=== PATIENT | male | born 1950 | race Caucasian/White ===

== ENCOUNTER → 2023-11-28 08:51 | Outpatient (REF) | payer OTHER, SELFPAY | LOC: RAD 08:51 | PROVIDERS: ATTENDING PHYSICIAN Family Medicine | DX: M54.9 Dorsalgia, unspecified (principal) | CPT/HCPCS: 72110 ==

== ENCOUNTER → 2024-03-09 13:26 | Outpatient (REF) | payer OTHER, SELFPAY | LOC: RCS 13:26 | PROVIDERS: ATTENDING PHYSICIAN Physician Assistant Medical; FAMILY PHYSICIAN Family Medicine | DX: I25.10 Atherosclerotic heart disease of native coronary artery without angina pectoris (principal) | CPT/HCPCS: 93306 ==

== ENCOUNTER 2024-07-06 11:11 | Outpatient (RCR) | payer OTHER, SELFPAY | END 2024-07-06 23:59 | disposition home or self-care (01) | LOC: RPT 11:11 | PROVIDERS: ATTENDING PHYSICIAN Family Medicine | DX: M54.50 Low back pain, unspecified (principal); M62.81 Muscle weakness (generalized); Z73.6 Limitation of activities due to disability | CPT/HCPCS: 97110; 97162; 97530 ==

== ENCOUNTER 2024-10-02 11:26 | Emergency (ER) | payer OTHER, SELFPAY ==
[2024-10-02 11:27] VITALS: BP 148/97
[2024-10-02 11:44] LABS: Urine Albumin 4+ (Neg - Trace); Urine Bilirubin Negative (Negative); Urine Character Bloody (Clear); Urine Color Red; Urine Glucose Negative (Negative); Urine Ketone 2+ (Negative); Urine Leukocyte Negative (Negative); Urine Nitrite Negative (Negative); Urine Occult Blood 4+ (Negative); Urine Specific Gravity 1.015 (<1.030); Urine Urobilinogen Negative (Neg - 1+); Urine pH 6.5 (5.0-9.0)
[2024-10-02 12:00] LABS: Urine Red Blood Cell >100 /HPF (0-2)
--- NOTE | 2024-10-02 12:04 | ED.GENMED ---
History of Present Illness
General
Chief Complaint: Flank Pain
Source: patient
Exam Limitations: none
Time Seen by Provider: 10/02/24 12:02
Nursing documentation reviewed up to this point in time: agreed with
History of Present Illness
History of Present Illness:
74 y/o M with h/o afib on xarelto
CAD, [place]
chronic L sided lubmar back pain
sent in by PCP for gross hematuria he noticed yesterday
he has no painful urination, no pressure, no urgency; denies seeing clots
has never had bleeding with urination bfore
he has had a remote kidney stone
a week ago he started a new med (lexapro) for anxiety but the following day had abdominal cramping but stopped it because of the cramping
then tried effexor a few days ago and had the same reaction with abdomianl crmaping
the abdominal cramping resolved
pt is not having persistent abd pain
he denies fever, chills, nausea, vomiting, diarrhea, constipation
the urine is translucent red
Past History
Past History
ED Past Medical History: Arrthythmia (Atrial fibrillation), CAD, GERD, HTN, Hypercholesterolemia, [place] and Other (Kidney stones, stomach ulcers, gout)
ED Past Surgical History: Cardiac
Social History
Tobacco: Non-smoker
Alcohol: None
Drug: None
Personal:
Living: with family
Review of Systems
Review of Systems
Allergies reviewed?: Yes
All Other Systems: Not applicable
Phy Exam
Physical Exam
Physical Exam:
GENERAL: Alert, comfortable, well appearing
Neck: supple
CARDIAC: Regular rate and rhythm .
LUNGS: Clear breath sounds bilaterally, no acute respiratory distress, no wheezes/rales/rhonchi
ABDOMEN: Soft, normal bowel sounds, nondistended, no abdominal tenderness, no guarding, no rebound, neg marshall's
gu: normal inspection
NEUROLOGICAL: Alert and oriented, no focal neuro deficits
SKIN: Warm and dry, skin intact.
PSYCH: Normal and appropriate interaction.
Course
Orders/Labs/Results
Orders:
Orders
10/02/24 11:36
Urinalysis Reflex To Culture Urgent
Date Specimen was Collected: 10/02/24
Time Specimen was Collected: 11:32
Urine Microscopic Reflex Cult Urgent
10/02/24 12:19
CT Abd/pel Without Iv Or Oral Urgent
Comment:
Reason For Exam: L back pain, hematuria
Bladder Scan- Treatment ONCE
10/02/24 12:54
Complete Blood Count/With Diff Urgent
Comprehensive Metabolic Panel Urgent
PTT Urgent
Prothrombin Time Urgent
10/02/24 15:38
Electrocardiogram (*1) Urgent
Reason for Study: Atrial Flutter
EKG- Treatment ONCE
Abnormal Lab Results
10/02/24 10/02/24
11:36 12:54
WBC 11.0 H 10^3/uL
(4.8-10.8)
MCH 31.4 H pg
(27.0-31.0)
RDW 15.0 H %
(11.5-14.5)
Abs Immat Gran (auto) 0.1 H 10^3/uL
(0-0.05)
Absolute Neuts (auto) 9.3 H 10^3/uL
(1.4-6.5)
Absolute Lymphs (auto) 0.9 L 10^3/uL
(1.2-3.4)
Absolute Monos (auto) 0.7 H 10^3/uL
(0.1-0.6)
Neutrophils % 84.3 H %
(42.2-75.2)
Lymphocytes % 7.8 L %
(20.5-51.1)
PT 21.9 H Sec
(11.4-14.6)
APTT 48.0 H Sec
(23.4-35.0)
Potassium 3.3 L mmol/L
(3.5-5.1)
Total Bilirubin 1.9 H mg/dl
(0.2-1.3)
Urine Ketones 2+ A
(Negative)
Ur Occult Blood Reflex 4+ A
(Negative)
Urine RBC >100 A /HPF
(0-2)
Urine Albumin (Reflex) 4+ A
(Neg - Trace)
10/02/24 12:54
10/02/24 12:54
Vital Signs
Initial and Last Documented VS:
Initial Vital Signs
Temp Pulse Resp BP Pulse Ox
36.6 C 102 22 148/97 99
10/02/24 11:27 10/02/24 11:27 10/02/24 11:27 10/02/24 11:27 10/02/24 11:27
Last Documented Vital Signs
Temp Pulse Resp BP Pulse Ox
36.6 C 102 22 168/91 97
10/02/24 11:27 10/02/24 11:27 10/02/24 11:27 10/02/24 16:00 10/02/24 16:45
MDM/Problems Addressed
Differential Diagnosis Includes:
hematuria, cysitis, kidney stone, bladder ca
MDM/Problems Addressed:
74 y/o M chroinc afib on xarelto
remote kidney stone
here with painless hematuria since yesterday; has chronic L back pain unchanged
urine is thin, no clots, and slightly dark red
no LE/nitrite
hg stable
PVR is [address] shows no obstructive uropathy; prostatomegaly; other nonspecific findigns; stones in the kidney
he would like to go home
his urine remains translucent red
he is not in retention
i spoke with supervisor electronics assembly urologist dr. parra who recommended holding the xarelto for 48 hours and f/u with dr. velezin 2 days
pt is agreeable to this plan
he is chronically in afib
aware benefit>risk for holding the xarelto for this time period
UA does not look infected.
*Critical Care Note
Total Time (30-74mins, 75-104mins- exclusive of procedures): Not Applicable
ED Attending Note
-
Portions of this chart may have been created with voice recognition software.� Occasional wrong word or��sound alike� substitutions may have occurred due to the inherent limitations of voice recognition software.
Discharge Plan
Departure
Patient Disposition: Home (Routine Discharge)
Date of Disposition: 10/02/24
Time of Disposition: 16:46
Patient with high blood pressure during this ER visit?: No
Condition: Fair
Covid-19: Not Applicable
Discharge Problem:
Hematuria
Instructions: Blood in the urine (hematuria) - ED discharge instructions
Prescriptions:
No Action
aspirin 81 MG tablet,delayed release (DR/EC)
81 mg PO DAILY
allopurinol 300 MG tablet
300 mg PO DAILY
amlodipine 5 MG tablet
5 mg PO DAILY
atorvastatin 80 MG tablet
80 mg PO DAILY
rivaroxaban [Xarelto] 20 MG tablet
20 mg PO DAILY
Referrals:
Ariel Velez MD [Active] - Follow up in 2-3 days
Ousmane Thacker MD [Family Provider] -
Activity Restrictions/Additional Instructions:
Hold your Xarelto for 48 hours. Hopefully this reduces the bleeding. Drink plenty of fluids to stay hydrated.
Call the office of Dr. Velez urologist on Friday to schedule an appointment. You will likely need further testing to see why you are bleeding. There were no signs of kidney stones passing in your ureter but you do have a couple of stones in
your kidney that could pass at some point.
Return for inability to urinate, passing clots, thick or very bloody urine, fever or chills, pain or any concerns
Interventions
Interventions:
*Risk Screen - Suicide Last Done: 10/02/24 11:27
*General Assessment Last Done: 10/02/24 11:27
*Neglect/Abuse Screening Last Done: 10/02/24 11:27
*ED- Fall Risk Assessment Last Done: 10/02/24 17:00
*ED COVID-19 Vaccine History Last Done: 10/02/24 12:44
*Nursing Disposition Last Done: 10/02/24 17:00
CD-Tzjnjp-Xnmllmtajz Assessment Last Done: 10/02/24 14:30
ED-Male Genitourinary Assessment Last Done: 10/02/24 14:30
Discharge Date and Time
Discharge Date/Time: 10/02/24 17:00
Print Language: ERITREAN
[2024-10-02 12:44] VITALS: BMI 26.2
[2024-10-02 13:00] VITALS: BP 147/84
[2024-10-02 13:05] LABS: % Basophils 0.3 % (0-2); % Eosinophils 0.4 % (0-6); % Immature Granulocytes 0.5 % (0-0.5); % Lymphocytes 7.8 % (20.5-51.1); % Monocytes 6.7 % (1.7-9.3); % Neutrophils 84.3 % (42.2-75.2); Absolute Immature Granulocytes 0.1 10^3/uL (0-0.05); Absolute Lymphocytes 0.9 10^3/uL (1.2-3.4); Absolute Monocytes 0.7 10^3/uL (0.1-0.6); Absolute Neutrophils 9.3 10^3/uL (1.4-6.5); Hematocrit 41.7 % (39.0-52.0); Hemoglobin 15.1 g/dL (13.0-18.0); Mean Corp Hgb Conc. 36.2 g/dL (33.0-37.0); Mean Corpuscular Hgb 31.4 pg (27.0-31.0); Mean Corpuscular Volume 86.7 fL (80.0-94.0); Mean Platelet Volume 9.9 fL (7.4-10.4); Nucleated Red Blood Cells % 0 % (-); Platelet Count 216 10^3/uL (130-400); Red Blood Cell Count 4.81 10^6/uL (4.70-6.10)
[2024-10-02 13:18] LABS: ALT (SGPT) 17 U/L (0-50); AST (SGOT) 33 U/L (17-59); Albumin 4.1 g/dl (3.5-5.0); Alkaline Phosphatase 96 U/L (38-126); Blood Urea Nitrogen 20 mg/dl (9-20); Calcium 9.6 mg/dl (8.4-10.2); Carbon Dioxide 22 mmol/L (22-30); Chloride 101 mmol/L (98-107); Estimated Creatinine Clearance 68 ml/min; Glucose 94 mg/dl (70-99); PT 21.9 Sec (11.4-14.6); Potassium 3.3 mmol/L (3.5-5.1); Sodium 136 mmol/L (135-145); Total Bilirubin 1.9 mg/dl (0.2-1.3); Total Protein 6.8 g/dl (6.3-8.2); eGFR > 60.00
[2024-10-02 14:00] VITALS: BP 133/89
[2024-10-02 15:34] VITALS: BP 161/92
[2024-10-02 16:00] VITALS: BP 168/91
== END 2024-10-02 17:00 | disposition home or self-care (01) ==
LOC: EMR 11:26
PROVIDERS: Physician Assistant; EMERGENCY PHYSICIAN Emergency Medicine; FAMILY PHYSICIAN Family Medicine
DX: R31.9 Hematuria, unspecified (principal); I48.91 Unspecified atrial fibrillation; I25.10 Atherosclerotic heart disease of native coronary artery without angina pectoris; I10 Essential (primary) hypertension; I25.2 Old myocardial infarction; K21.9 Gastro-esophageal reflux disease without esophagitis; E78.00 Pure hypercholesterolemia, unspecified; F41.9 Anxiety disorder, unspecified; Z79.01 Long term (current) use of anticoagulants; Z87.442 Personal history of urinary calculi
CPT/HCPCS: 99284; 74176; 80053; 81003; 81015; 85025; 85610; 85730; 93005

== ENCOUNTER → 2024-12-08 14:38 | Outpatient (REF) | payer OTHER, SELFPAY | LOC: RCS 14:38 | PROVIDERS: ATTENDING PHYSICIAN Internal Medicine Interventional Cardiology; FAMILY PHYSICIAN Family Medicine | DX: I25.10 Atherosclerotic heart disease of native coronary artery without angina pectoris (principal); Z79.01 Long term (current) use of anticoagulants; R60.0 Localized edema; I31.39 Other pericardial effusion (noninflammatory) | CPT/HCPCS: 93306 ==

== ENCOUNTER 2025-02-17 04:13 | Inpatient (IN) | payer OTHER, SELFPAY ==
--- NOTE | 2025-02-16 23:37 | ED.GENMED ---
History of Present Illness
General
Chief Complaint: Abdominal Pain
Source: patient
Exam Limitations: none
Time Seen by Provider: 02/16/25 23:16
Nursing documentation reviewed up to this point in time: agreed with
History of Present Illness
History of Present Illness:
Note:
CHIEF COMPLAINT(S)
Abdominal pain.
HISTORY OF PRESENT ILLNESS
The patient is a 74-year-old male with a history of kidney stones and hernia repair, A-fib on Xarelto, coronary artery disease, hypertension, GERD presenting with abdominal pain experienced for a few days. The onset of the abdominal pain coincided
with the initiation of a new medication, 'ex-garcia,' approximately two months ago. The patient describes the pain as worsening over time, starting suddenly last night and then becoming progressively severe. Additionally, he mentioned decreased
urination despite maintaining high fluid intake. Today, the patient consumed apple cider, which he does not regularly drink, and this intake preceded an exacerbation of the pain. The pain has been constant. He also reported vomiting once and feeling
feverish, with associated chills in the last hour. He describes the abdominal pain as located in the front of the abdomen, on both sides, with no radiation to the back or groin. The pain reminds him of discomfort experienced during previous kidney
stone episodes. The patient also admitted to nausea but stated it subsided temporarily. He denies any rectal bleeding, dark tarry stools.
PAST MEDICAL AND SURGICAL HISTORY
- History of kidney stones with surgical intervention.
- History of hernia repair surgery.
CHRONIC MEDICAL CONDITIONS SIGNIFICANTLY AFFECTING CARE
- Atrial fibrillation (patient is on Xarelto, a blood thinner).
MEDICATIONS
- Xarelto for atrial fibrillation.
REVIEW OF SYSTEMS
- Gastrointestinal: Abdominal pain worsening, vomiting once, nausea, decreased urination despite fluid intake.
- Constitutional: Fevers and chills in the last hour.
PHYSICAL EXAM
General: Patient appears uncomfortable secondary to pain however non-toxic
Skin: Warm, dry.
Head: Normocephalic, atraumatic.
Neck: Supple, trachea midline.
Eyes, Ears, Nose, and Throat: Oral mucosa moist.
Cardiovascular: Normal peripheral perfusion, No edema.
Respiratory: Respirations are non-labored.
Gastrointestinal: Abdominal pain noted with palpation and guarding, rigidity on examination, pain localized to lower abdomen.
Neurological: Alert and oriented to person, place, time, and situation, No focal neurological deficit observed.
Psychiatric: Cooperative, appropriate mood & affect.
PLAN
- Administer pain management with morphine.
- Avoid nonsteroidal anti-inflammatory drugs (NSAIDs) due to Xarelto use.
- Conduct a CT scan
- CBC, CMP, lactic, lipase, urine
DIFFERENTIAL DIAGNOSIS
The Differential Diagnosis includes, in no particular order and is not limited to:
1. Kidney stones
2. Bowel obstruction
3. Hernia complications
4. Gastroenteritis
5. Constipation
6. Peptic ulcer disease
7. Gastritis
8. Pancreatitis
9. Urinary tract infection
10. Diverticulitis
CHART REVIEW
Reviewed ER physician documentation from 10/02/2024 patient seen for hematuria he was told to withhold Xarelto for 48 hours and schedule follow-up with Dr. Velez in 2 days
Reviewed discharge summary from 06/25/2020 patient seen for hematochezia was attributed to likely diverticulosis versus nonspecific rectosigmoid ulcers patient was cleared to resume Xarelto
MDM/DISPOSITION
The patient is a 74-year-old male with a history of kidney stones and hernia repair, A-fib on Xarelto, coronary artery disease, hypertension, GERD presenting with abdominal pain experienced for a few days. The onset of the abdominal pain coincided
with the initiation of a new medication, 'ex-garcia,' approximately two months ago. The patient describes the pain as worsening over time, starting suddenly last night and then becoming progressively severe. On physical exam, he appears uncomfortable
secondary to pain, he has a rigid abdomen with guarding. He is afebrile. His blood work shows a leukocytosis with left shift. His pain was treated with morphine. He went for CAT scan which showed moderate wall thickening and inflammatory
changes/phlegmon involving the proximal descending colon consistent with diverticulitis, there is foci of gas slightly to the wall consistent with microperforation. Considering patient's degree of pain along with evidence of microperforation on CAT
scan, will admit for IV antibiotic and GI consult. Patient referred for admission.
Past History
Past History
ED Past Medical History: Arrthythmia (Atrial fibrillation), CAD, GERD, HTN, Hypercholesterolemia, [place] and Other (Kidney stones, stomach ulcers, gout)
ED Past Surgical History: Cardiac
Social History
Tobacco: Non-smoker
Alcohol: None
Drug: None
Personal:
Living: with family
Review of Systems
Review of Systems
All Other Systems: ROS reviewed and negative except as documented in HPI and ROS
Phy Exam
Physical Exam
Physical Exam:
see hpi
Course
Orders/Labs/Results
Orders:
Orders
02/16/25 23:31
Electrocardiogram (*1) Urgent
Reason for Study: Abdominal Pain
0.9% Sodium Chloride 250 ml [Nss] 250 ml IV BOLUS
Morphine Sulfate 4 mg IV NOW STA
02/16/25 23:34
Complete Blood Count/With Diff Urgent
Comprehensive Metabolic Panel Urgent
Lactic Acid Urgent
Lipase Urgent
02/17/25
CT Abd/pelvis W Iv Cont Urgent
Reason For Exam: diffuse lower abdominal pain
02/17/25 02:21
Morphine Sulfate 2 mg IV NOW STA
Piperacillin/Tazo 4.5 Gram [Zosyn] 4.5 gram in 100 ml IV NOW
02/17/25 02:35
Urinalysis Reflex To Culture Urgent
Date Specimen was Collected: 02/17/25
Time Specimen was Collected: 02:29
Urine Microscopic Reflex Cult Urgent
Abnormal Lab Results
02/16/25 02/17/25
23:34 02:35
WBC 16.3 H 10^3/uL
(4.8-10.8)
MCH 31.3 H pg
(27.0-31.0)
Abs Immat Gran (auto) 0.1 H 10^3/uL
(0-0.05)
Absolute Neuts (auto) 14.6 H 10^3/uL
(1.4-6.5)
Absolute Lymphs (auto) 0.8 L 10^3/uL
(1.2-3.4)
Absolute Monos (auto) 0.7 H 10^3/uL
(0.1-0.6)
Neutrophils % 89.9 H %
(42.2-75.2)
Lymphocytes % 4.6 L %
(20.5-51.1)
Sodium 132 L mmol/L
(135-145)
Glucose 127 H mg/dl
(70-99)
Lactic Acid 2.5 H mmol/L
(0.7-2.0)
Total Bilirubin 2.0 H mg/dl
(0.2-1.3)
Urine Urobilinogen 2+ A
(Neg - 1+)
Urine Albumin (Reflex) 2+ A
(Neg - Trace)
02/16/25 23:34
02/16/25 23:34
Vital Signs
Initial and Last Documented VS:
Initial Vital Signs
Temp Pulse Resp Pulse Ox
98.2 F 56 18 99
02/16/25 23:02 02/16/25 23:02 02/16/25 23:02 02/16/25 23:02
Last Documented Vital Signs
Temp Pulse Resp Pulse Ox
98.2 F 56 18 92
02/16/25 23:02 02/16/25 23:02 02/16/25 23:02 02/17/25 03:30
*Pulse Oximetry
SaO2: 99
Oxygen Mode of Delivery: Room air
Patient hypoxic: no
*Critical Care Note
Total Time (30-74mins, 75-104mins- exclusive of procedures): Not Applicable
ED Attending Note
-
Portions of this chart may have been created with voice recognition software.� Occasional wrong word or��sound alike� substitutions may have occurred due to the inherent limitations of voice recognition software.
Discharge Plan
Departure
Patient Disposition: Admit
Date of Disposition: 02/17/25
Time of Disposition: 02:23
Admit to: Med/Surg
Presentation/result/management discussed w/ accepting MD/DO: Hospitalist
Patient with high blood pressure during this ER visit?: Yes
Condition: Fair
Discharge Problem:
Diverticulitis of large intestine with perforation
Prescriptions:
No Action
aspirin 81 MG tablet,delayed release (DR/EC)
81 mg PO DAILY
allopurinol 300 MG tablet
300 mg PO DAILY
amlodipine 5 MG tablet
5 mg PO DAILY
atorvastatin 80 MG tablet
80 mg PO DAILY
rivaroxaban [Xarelto] 20 MG tablet
20 mg PO DAILY
Referrals:
Ousmane Thacker MD [Family Provider, Family Practice]
Interventions
Interventions:
*Risk Screen - Suicide Last Done: 02/16/25 23:02
*General Assessment Last Done: 02/16/25 23:02
*ED- Fall Risk Assessment Last Done: 02/17/25 00:16
*ED COVID-19 Vaccine History Last Done: 02/17/25 00:16
VY-Lozaem-Yitostrpjz Assessment Last Done: 02/17/25 00:16
Discharge Date and Time
Print Language: [place]LAND[place]
[2025-02-16] MEDS: NSS 250 IV (23:46)
[2025-02-16] MEDS: MORPHINE SULFATE 4 MG IV (23:47)
[2025-02-16 23:51] LABS: Hematocrit 42.0 % (39.0-52.0); Hemoglobin 14.7 g/dL (13.0-18.0); Mean Corp Hgb Conc. 35.0 g/dL (33.0-37.0); Mean Corpuscular Volume 89.4 fL (80.0-94.0); Nucleated Red Blood Cells % 0 % (-); Platelet Count 224 10^3/uL (130-400); Red Cell Dist. Width 13.9 % (11.5-14.5)
[2025-02-17] VITALS (8 sets, daily range): BP systolic 111–143; BP diastolic 65–85; BMI 25.3; BMI 25.6
[2025-02-17 00:08] LABS: ALT (SGPT) 17 U/L (0-50); AST (SGOT) 26 U/L (17-59); Albumin 3.7 g/dl (3.5-5.0); Alkaline Phosphatase 84 U/L (38-126); Blood Urea Nitrogen 10 mg/dl (9-20); Calcium 9.2 mg/dl (8.4-10.2); Carbon Dioxide 26 mmol/L (22-30); Chloride 99 mmol/L (98-107); Glucose 127 mg/dl (70-99); Lipase 97 U/L (23-300); Potassium 3.9 mmol/L (3.5-5.1); Sodium 132 mmol/L (135-145); Total Protein 6.3 g/dl (6.3-8.2); eGFR > 60.00
[2025-02-17] MEDS: ZOSYN 100 IV (02:30)
[2025-02-17] MEDS: MORPHINE SULFATE 2 MG IV (02:31)
[2025-02-17 02:56] LABS: Urine Character Clear (Clear)
[2025-02-17 03:04] LABS: Urine Red Blood Cell None Seen /HPF (0-2); Urine White Cell 0-2 /HPF (0-5)
--- NOTE | 2025-02-17 04:02 | HPS.HSE ---
Family Physician
-
Family Physician: Ousmane Thacker
Chief Complaint
-
Abd Pain
History of Present Illness
Patient is a 74y M with PMH significant for ASCVD, hypertension and dementia who presents to ED complaining of abdominal pain x 3 days. History obtained from patient and his family at bedside. Patient is somewhat confused at time regarding
recent events - suspected combination of underlying cognitive impairment / dementia and pain medicine given in the ED.
Patient reports recent issues with constipation - presumably since beginning escitalopram for mood / anxiety. For the past 3 days or so he has noted lower abdominal pain. N/V x 1 episode today. No fevers. Pos shaking chills per .
No bloody stools. No urinary complaints.
Patient has no prior history of diverticulitis.
Medical History
Past Medical History
Past Medical History: Reports Other
Additional Past Medical History:
ASCVD
Hypertension
Permanent Atrial Fibrillation
Gout
DAVE
BPH
Kidney Stones
Senile Dementia
Past Surgical History: Reports Other
Additional Past Surgical History:
PTCA with Stent
Rotator Cuff Surgery
Umbilical Hernia Repair
PPM Placement
Social History
Tobacco: Non-smoker
Alcohol: Occasional
Drug: None
Personal:
Living: With Family
Family History
Family History: Not pertinent
Allergies / Home Medications
Allergies reflects when Allergies were last updated in [employer].
Home Medications with original date entered in [employer] [facility]
Allergy/Medication List:
Allergies
Allergy/AdvReac Type Severity Reaction Status Date / Time
No Known Allergies Allergy Verified 10/02/24 11:27
Home Medications
allopurinol 300 mg tablet 300 mg PO DAILY Gout 10/29/13
amlodipine 5 mg tablet 5 mg PO DAILY Blood pressure 10/15/18
atorvastatin 80 mg tablet 80 mg PO DAILY High cholesterol 02/12/19
rivaroxaban 20 mg tablet (Xarelto) 20 mg PO DAILY Blood clot prevention/tx 06/24/20
escitalopram oxalate 10 mg tablet 10 mg PO DAILY 02/17/25
tamsulosin 0.4 mg capsule 0.4 mg PO DAILY 02/17/25
Review of Systems
-
History Source: Patient and Family
A 12 point ROS was completed and negative except as noted: Yes
Constitutional: Reports Chills; Denies Fever or Fatigue
Respiratory: Denies Cough or Trouble Breathing
Cardiac: Denies Chest Pain or Palpitations
Abdomen/GI: Reports Abdominal Pain, Nausea, Vomiting and Constipated; Denies Diarrhea, Bloody Stools or Black Stools
: Denies Dysuria or Frequency
Musculoskeletal: Denies Joint Pain or Edema
Neurological: Denies Dizzy or Headache
Psych: Reports Anxiety and Dementia; Denies Depression
Physical Exam
Vital Signs
Vital Signs
Temp Pulse Resp Pulse Ox
98.2 F 56 18 92
02/16/25 23:02 02/16/25 23:02 02/16/25 23:02 02/17/25 03:30
Physical Exam
General: Other (74y M in no acute distress.)
HEENT: Other (Dry MM. Neck supple.)
Respiratory: Clear; No Wheezes, Rales or Rhonchi
Cardiac: S1/S2, Regular Rhythm and Murmur (II/ EVE)
GI: Soft, Non Distended, Normal Bowel Sounds and Other (LLQ tenderness without rebound /guarding.)
Musculoskeletal: No Clubbing, No Cyanosis and No Edema
Neuro: Awake and Alert
Laboratory Results
-
02/16/25 23:34
02/16/25 23:34
Laboratory Results
Lactic Acid 2.5 mmol/L (0.7-2.0) H 02/16/25 23:34
Total Bilirubin 2.0 mg/dl (0.2-1.3) H 02/16/25 23:34
AST 26 U/L (17-59) 02/16/25 23:34
ALT 17 U/L (0-50) 02/16/25 23:34
Alkaline Phosphatase 84 U/L (38-126) 02/16/25 23:34
Lipase 97 U/L (23-300) 02/16/25 23:34
Impression/Plan
-
A/P: Patient is a 74y M with PMH significant for ASCVD, hypertension and A-Fib who presents to ED complaining of lower abdominal pain x 3 days.
Acute Descending Colon Diverticulitis with Microperforation
- Admit for further evaluation and treatment.
- Clear liquids, IVFs, pain control, etc.
- IV abx with Zosyn.
- Follow for clinical improvement.
- Colorectal evaluation for additional recommendations.
ASCVD
- Stable. No chest pain, dyspnea, etc.
- ASA daily for now. Follow for any new symptoms.
Permanent Atrial Fibrillation
- Stable. Currently in placed rhythm.
- Hold Xarelto acutely - though doubt that any intervention will be necessary.
Benign Hypertension
- Stable. Continue amlodipine with holding parameters.
BPH
- Stable. Continue Flomax.
- Bladder scan protocol.
Cognitive Impairment
- Being evaluated for suspected dementia. Outpatient studies, MRI, Neuro eval are planned / in progress.
- Follow for agitation, delirium, etc during acute stay.
- Hold Lexapro for now. Consider alternate agent for mood.
DVT Prophylaxis: SCDs
Code Status: Full
--- NOTE | 2025-02-17 05:10 | PTCARENOTE ---
Pt arrived to room 415-02. Pt ambulated from stretcher to bed with assistance. Pt AAOx3, VSS. Pt reports LLQ pain 2/. Oriented to room, call elena placed within reach. Bed alarm in place.
[2025-02-17] MEDS: LR 1000 IV ×2 (05:12→14:00)
--- NOTE | 2025-02-17 07:32 | W.PN.HOSP.TC ---
Today's Communication/Plan
-
See plan
Assessment / Plan
Assessment / Plan
Physical Exam
General: Other (74y M in no acute distress.)
HEENT: Other (Dry MM. Neck supple.)
Respiratory: Clear; No Wheezes, Rales or Rhonchi
Cardiac: S1/S2, Regular Rhythm and Murmur (II/ EVE)
GI: Soft, Non Distended, Normal Bowel Sounds and Other (LLQ tenderness without rebound /guarding.)
Musculoskeletal: No Cyanosis and No Edema
Neuro: Awake and Alert and Oriented x3
Assessment/Plan
74y M with [facility] significant for ASCVD, hypertension and dementia who presented to [facility] ED complaining of abdominal pain x 3 days leading up to presentation. History obtained from patient and his family at bedside. Patient is somewhat confused at
time regarding recent events - suspected combination of underlying cognitive impairment / dementia and pain medicine given in the [facility] ED. Patient reported recent issues with constipation - presumably since beginning escitalopram for mood/anxiety.
For the 3 days or so (leading up to presentation) he noted lower abdominal pain. N/V x 1 episode on 02/16/25. No fevers, but did have chills.
No bloody stools. No urinary complaints. Patient has no prior history of diverticulitis.
Acute Descending Colon Diverticulitis with Microperforation
History of Hematochezia, Diverticulosis, Small ulcers of the rectosigmoid colon and Hemorrhoids
- Clear liquids, IVFs, pain control, etc.
- IV abx with Zosyn.
- Follow for clinical improvement.
- Colorectal evaluation for additional recommendations.
Lactic Acidosis
- RESOLVED
Coronary Artery Disease with history of myocardial infarction status post stenting
History of CVA
- Stable. No chest pain, dyspnea, etc.
- ASA daily for now. Follow for any new symptoms.
Permanent Atrial Fibrillation
- Stable. Currently in placed rhythm.
- Hold Xarelto acutely - though doubt that any intervention will be necessary.
History of Acquired Thrombophilia
History of Peptic Ulcer Disease
Benign Hypertension
- Stable. Continue amlodipine with holding parameters.
BPH
- Stable. Continue Flomax.
- Bladder scan protocol.
Cognitive Impairment
Moderate Vascular Dementia?
- Being evaluated for suspected dementia. Outpatient studies, MRI, Neuro eval are planned / in progress.
- Follow for agitation, delirium, etc during acute stay.
- Hold Lexapro for now. Consider alternate agent for mood.
Depression?
History of Pericardial Effusion
Type 2 Diabetes Mellitus
Hyperlipidemia
DAVE
-CPAP?
History of Gout
DVT Prophylaxis: SCDs. Lovenox while Xarelto is being held.
Code Status: Full
This is a non-billable note.
Anticipated Discharge: 24 - 48 hours
Subjective/Interval History
-
Date of Service: February 17, 2025
Patient was seen and examined. He reported his abdominal pain has improved since coming to the hospital.
Objective Data
-
Labs:
Laboratory Results
02/16/25 02/17/25
23:34 06:00
WBC 16.3 H Pending
Hgb 14.7 Pending
Hct 42.0 Pending
Plt Count 224 Pending
Sodium 132 L Pending
Potassium 3.9 Pending
Chloride 99 Pending
Carbon Dioxide 26 Pending
BUN 10 Pending
Creatinine 0.7 Pending
Glucose 127 H Pending
Calcium 9.2 Pending
Total Bilirubin 2.0 H
AST 26
ALT 17
Alkaline Phosphatase 84
Vital Signs:
Vital Signs
Temp Pulse Resp BP Pulse Ox
99.9 F 92 18 137/78 95
02/17/25 05:03 02/17/25 05:03 02/17/25 05:03 02/17/25 05:03 02/17/25 05:03
[2025-02-17 08:08] LABS: Hematocrit 39.3 % (39.0-52.0); Hemoglobin 13.8 g/dL (13.0-18.0); Mean Corp Hgb Conc. 35.1 g/dL (33.0-37.0); Mean Corpuscular Volume 88.3 fL (80.0-94.0); Platelet Count 201 10^3/uL (130-400); Red Cell Dist. Width 14.1 % (11.5-14.5)
[2025-02-17] MEDS: ZYLOPRIM 300 MG PO (08:17)
[2025-02-17] MEDS: NORVASC 5 MG PO (08:17)
[2025-02-17] MEDS: FLOMAX 0.4 MG PO (08:17)
[2025-02-17] MEDS: LIPITOR 80 MG PO (08:17)
[2025-02-17] MEDS: LOW STRENGTH ASPIRIN 81 MG PO (08:17)
[2025-02-17] MEDS: ZOSYN 50 IV ×3 (08:18→20:27)
[2025-02-17 08:35] LABS: Blood Urea Nitrogen 9 mg/dl (9-20); Calcium 8.6 mg/dl (8.4-10.2); Carbon Dioxide 26 mmol/L (22-30); Chloride 101 mmol/L (98-107); Estimated Creatinine Clearance 87 ml/min; Glucose 115 mg/dl (70-99); Potassium 3.6 mmol/L (3.5-5.1); Sodium 133 mmol/L (135-145); eGFR > 60.00
--- NOTE | 2025-02-17 10:17 | CON.CRS ---
Consultation
-
Date/Time Consultation Requested: 02/17/2025, 5:06
Date/Time Consultation Performed: 02/17/2025, 8:45
Requesting Provider: Omega Zhou DO
Performing Provider: Frankie Qureshi MD
Reason for Consultation: diverticulitis
Medical History
-
Chief Complaint: abdominal pain
History of Present Illness:
74-year-old male, with a history of dementia, presents to [facility] due to abdominal pain for several days. He recently had some constipation per his . He noted some lower abdominal pain especially when he moves. He denies nausea or
vomiting. He is not very hungry. He has not had a bowel movement today but normally is regular. Denies a history of prior diverticulitis. He did have a recent abdominal hernia repair but otherwise denies any other previous abdominal surgeries.
He had a colonoscopy in [address] Hardwick which showed a 3 mm polyp in the transverse colon, multiple 1 to 3 mm ulcers in the rectum. Also internal hemorrhoids. Pathology showed the ulcers in the rectum to be negative for granuloma and dysplasia.
The polyp in the transverse colon was suggestive of an early tubular adenoma. On admission to the ER his WBC was 16.3 and is 21.6 today. He remains afebrile. CT of the abdomen and pelvis showed moderate acute sigmoid diverticulitis with probable
microperforation with no fluid collection or abscess identified. Given these findings, we have been consulted for surgical opinion
Past Medical History
Past Medical History: Other (ASCVD, Hypertension, Permanent Atrial Fibrillation, Gout, DAVE, BPH, Kidney Stones, Senile Dementia)
Past Surgical History: Other (PTCA with Stent, Rotator Cuff Surgery, Umbilical Hernia Repair, PPM Placement)
Social History
Tobacco: Non-Smoker
Alcohol: Occasional
Drug: None
Personal:
Family History
Family History: Reviewed & Not Pertinent
Allergies / Home Medications
Allergy/AdvReac Type Severity Reaction Status Date / Time
No Known Allergies Allergy Verified 10/02/24 11:27
�Medication �Instructions �Recorded �Confirmed �Type
allopurinol 300 mg tablet 300 mg PO DAILY Gout 10/29/13 02/17/25 History
amlodipine 5 mg tablet 5 mg PO DAILY Blood pressure 10/15/18 02/17/25 History
atorvastatin 80 mg tablet 80 mg PO DAILY High cholesterol 02/12/19 02/17/25 History
rivaroxaban 20 mg tablet (Xarelto) 20 mg PO DAILY Blood clot 06/24/20 02/17/25 History
prevention/tx
escitalopram oxalate 10 mg tablet 10 mg PO DAILY 02/17/25 02/17/25 History
tamsulosin 0.4 mg capsule 0.4 mg PO DAILY 02/17/25 02/17/25 History
Review of Systems
-
Unable to obtain full review of systems at this time due to: Dementia
History Source: Patient
Constitutional: Chills
Abdomen/GI: Abdominal Pain
A 10 point review of systems was completed, and was negative except as per HPI.
Physical Exam
Vital Signs
Temp 97.8 F 02/17/25 08:00
Pulse 79 02/17/25 08:00
Resp Rate 16 02/17/25 08:00
Blood pressure 143/85 02/17/25 08:00
SaO2 97 02/17/25 08:00
02/16/25 02/17/25 02/18/25
06:59 06:59 06:59
Actual Weight 76.402 kg
Body Mass Index (BMI) 25.6
Lab Results / Allergies
02/17/25 07:43
02/17/25 07:43
WBC 21.6 10^3/uL (4.8-10.8) H 02/17/25 07:43
Hgb 13.8 g/dL (13.0-18.0) 02/17/25 07:43
Hct 39.3 % (39.0-52.0) 02/17/25 07:43
Plt Count 201 10^3/uL (130-400) 02/17/25 07:43
Abs Immat Gran (auto) 0.1 10^3/uL (0-0.05) H 02/16/25 23:34
Neutrophils % 89.9 % (42.2-75.2) H 02/16/25 23:34
Allergy/AdvReac Type Severity Reaction Status Date / Time
No Known Allergies Allergy Verified 10/02/24 11:27
Physical Exam
General: Well Developed, Well Nourished and No Apparent Distress
GI: Soft, Non Tender and Non Distended
Skin: Warm and Dry
Neuro: AO x 3
Psych: Calm
Data Reviewed
-
CT Scan: Image Personally Visualized and interpreted, Report Reviewed by me and Discussed with Patient
Labs: Labs Reviewed by me, Discussed with Physician and Discussed with Patient
Old Records: Reviewed
Assessment / Plan
-
Assessment: 74yo male with a history of dementia presents to the ER with abdominal pain and found to have diverticulitis on CT scan
WBC 21.6 (16.3), vitals normal
Plan:
-Remain on clears for today with IVFS
-Continue with IV antibiotics
-Hold xarelto for now
-OOB as tolerated
-Okay for dvt prophylaxis from our perspective
-Trend WBC/exam
--- NOTE | 2025-02-17 15:29 | CM ---
Patient w/ some confusion. Spoke w/spouse, initial assessment completed. Patient is a 74y M with PMH significant for ASCVD, hypertension and dementia who presents to ED complaining of abdominal pain.
Patient resides w/ spouse in a 1st floor apartment, 2 or 3 steps to enter from the outside. Patient is independent w/ ambulation, no device required. Independent w/ ADLs. No DME reported. Denies SNF/HC hx reported. OP therapy in the past, nothing
recent.
Address, point of contact and insurance verified
PCP: Ousmane Thacker
Pharmacy: [facility]
CM consulted for advanced directive. Spouse agreeable to review, left copy of paperwork at patient's bedside as requested.
Plan: Anticipate home, will watch for any needs
[2025-02-17] MEDS: TYLENOL 650 MG PO (16:05)
[2025-02-17] MEDS: LOVENOX 40 MG SC (17:28)
[2025-02-18] MEDS: LR 1000 IV ×2 (02:26→15:41)
[2025-02-18] MEDS: ZOSYN 50 IV ×4 (02:26→19:39)
[2025-02-18 03:31] VITALS: BP 133/62
[2025-02-18 07:03] LABS: Hematocrit 40.6 % (39.0-52.0); Hemoglobin 14.3 g/dL (13.0-18.0); Mean Corp Hgb Conc. 35.2 g/dL (33.0-37.0); Mean Corpuscular Volume 87.5 fL (80.0-94.0); Platelet Count 206 10^3/uL (130-400); Red Cell Dist. Width 14.3 % (11.5-14.5)
[2025-02-18 07:26] LABS: ALT (SGPT) 13 U/L (0-50); AST (SGOT) 17 U/L (17-59); Albumin 3.0 g/dl (3.5-5.0); Alkaline Phosphatase 76 U/L (38-126); Blood Urea Nitrogen 11 mg/dl (9-20); Calcium 8.7 mg/dl (8.4-10.2); Carbon Dioxide 30 mmol/L (22-30); Chloride 100 mmol/L (98-107); Estimated Creatinine Clearance 87 ml/min; Glucose 118 mg/dl (70-99); Potassium 3.4 mmol/L (3.5-5.1); Sodium 133 mmol/L (135-145); Total Protein 5.4 g/dl (6.3-8.2); eGFR > 60.00
--- NOTE | 2025-02-18 07:43 | W.PN.HOSP.TC ---
Today's Communication/Plan
-
See plan
Assessment / Plan
Assessment / Plan
Physical Exam
General: Not in acute distress
HEENT: Normocephalic.
Respiratory: Clear to Auscultation Bilaterally
Cardiac: S1/S2, Regular Rhythm and Murmur (II/ EVE)
GI: Soft, Non Distended, Normal Bowel Sounds and Other (LLQ tenderness without rebound /guarding.)
Musculoskeletal: No Cyanosis and No Edema
Neuro: Awake and Alert and Oriented x3
Assessment/Plan
74 y/o male with past medical history significant for ASCVD, hypertension and dementia who presented to [facility] ED complaining of abdominal pain x 3 days leading up to presentation. History obtained from patient and his family at bedside. Patient is
somewhat confused at time regarding recent events - suspected combination of underlying cognitive impairment / dementia and pain medicine given in the [facility] ED. Patient reported recent issues with constipation - presumably since beginning
escitalopram for mood/anxiety. For the 3 days or so (leading up to presentation) he noted lower abdominal pain. N/V x 1 episode on 02/16/25. No fevers, but did have chills.
No bloody stools. No urinary complaints. Patient has no prior history of diverticulitis.
Acute Descending Colon Diverticulitis with Microperforation
History of Hematochezia, Diverticulosis, Small ulcers of the rectosigmoid colon and Hemorrhoids
- Diet advanced to Full Liquids
- IV abx with Zosyn.
- Colorectal surgery: per my [place] [employer] communication with Dr. Qureshi today, hold Xarelto for 1 more day in the setting of leukocytosis and continue Full Liquids for today
Lactic Acidosis
- RESOLVED
Coronary Artery Disease with history of myocardial infarction status post stenting
History of CVA
- Stable. No chest pain, dyspnea, etc.
- ASA daily for now. Follow for any new symptoms.
Permanent Atrial Fibrillation
- Stable. Currently in placed rhythm.
- Hold Xarelto -- please see above -- if patient needs prolonged holding of Xarelto, consider starting Heparin Drip
Hyponatremia
- Stable
- PO FR 48 ounces daily
- Monitor BMP
History of Acquired Thrombophilia
History of Peptic Ulcer Disease
Benign Hypertension
- Stable. Continue amlodipine with holding parameters.
BPH
- Stable. Continue Flomax.
- Bladder scan protocol.
Cognitive Impairment
Moderate Vascular Dementia?
- Being evaluated for suspected dementia. Outpatient studies, MRI, Neuro eval are planned / in progress.
- Follow for agitation, delirium, etc during acute stay.
- Hold Lexapro for now. Consider alternate agent for mood.
Depression?
History of Pericardial Effusion
Type 2 Diabetes Mellitus
- Glucose well-controlled
Hyperlipidemia
DAVE
-CPAP?
History of Gout
DVT Prophylaxis: SCDs. Lovenox while Xarelto is being held.
Code Status: Full Code
Anticipated Discharge: 24 - 48 hours
Subjective/Interval History
-
Date of Service: February 18, 2025
Patient was seen and examined. He reported that his abdominal pain is better, and he had some nausea. He is tolerating his diet.
Objective Data
-
Labs:
Laboratory Results
02/18/25
06:35
WBC 18.7 H
Hgb 14.3
Hct 40.6
Plt Count 206
Sodium 133 L
Potassium 3.4 L
Chloride 100
Carbon Dioxide 30
BUN 11
Creatinine 0.7
Glucose 118 H
Calcium 8.7
Total Bilirubin 2.7 H
AST 17
ALT 13
Alkaline Phosphatase 76
Vital Signs:
Vital Signs
Temp Pulse Resp BP Pulse Ox
98.4 F 85 16 133/62 95
02/18/25 03:31 08/29/25 03:31 02/18/25 03:31 02/18/25 03:31 02/18/25 03:31
I&O
02/17/25 02/18/25 02/19/25
06:59 06:59 06:59
Intake Total 1100 / 1100
Output Total 750 / 750
Balance 350 / 350
[2025-02-18 08:00] VITALS: BP 143/90
[2025-02-18] MEDS: KLOR-CON 20 MEQ PO (08:33)
[2025-02-18] MEDS: LIPITOR 80 MG PO (08:34)
[2025-02-18] MEDS: LOW STRENGTH ASPIRIN 81 MG PO (08:35)
[2025-02-18] MEDS: NORVASC 5 MG PO (08:35)
[2025-02-18] MEDS: ZYLOPRIM 300 MG PO (08:35)
[2025-02-18] MEDS: FLOMAX 0.4 MG PO (08:37)
--- NOTE | 2025-02-18 08:44 | PN.CDI ---
CDI
- -
CDI:
Physician Documentation Request
Admit Date: 02/17/25 04:13
Dear Doctor Sonja,
Clinical Indicators:
Patient admitted with Acute Descending Colon Diverticulitis with Microperforation.
IVF: NSS 250 ml bolus x1 , LR @100 ml/hr
Sodium trend:
02/16/25 02/17/25
23:34 07:43
Sodium 132 L 133 L
Based on the above, could you clarify in the progress notes, the appropriate diagnosis, if significant, that supports the above abnormalities and additional evaluation, monitoring and/or treatment rendered:
Hyponatremia
Abnormal lab values, clinically insignificant
Other, please specify
Use of terms such as suspected, likely, concern for, or probable (associated with a specific diagnosis that is being evaluated, monitored, or treated as if it exists) are acceptable and can be coded in the inpatient setting, when documented at the
time of discharge.
Thank you,
TWAN Mccollum RN
CDI Specialist
available via tiger text
Please use your independent medical judgment in providing your response.
--- NOTE | 2025-02-18 10:14 | W.PN.CRS1 ---
Today's Communication / Plan
-
Full liquids
Monitor WBC
Assessment/Plan
-
74-year-old male admitted with his first episode of sigmoid diverticulitis with a small amount of air adjacent to the colon.
Remains afebrile vital signs are stable.
White count is minimally improved at 18.7 (21.6)
- Will advance to full liquids.
- No plans for surgery today.
- Monitor WBC. Re-scan if it increases or fever to look for an abscess.
Subjective Data
Subjective Data
Date of Service: February 18, 2025
He feels better and has minimal pain. He is tolerating clear liquids but not that hungry. He is moving his bowels. He is hopeful to be discharged soon.
Objective Data
-
Vital Signs
Temp Pulse Resp BP Pulse Ox
98.6 F 91 16 143/90 95
02/18/25 08:00 02/18/25 08:35 02/18/25 08:00 02/18/25 08:35 02/18/25 08:00
Intake & Output
02/17/25 02/18/25 02/19/25
06:59 06:59 06:59
Intake Total 1100 / 1100
Output Total 750 / 750
Balance 350 / 350
Intake:
IV fluids (Total) 1100 / 1100
Output:
Urine, Voided 750 / 750
Other:
Number of approximated MODERATE 2
amounts of urine
Lab Results
02/18/25 06:35
02/18/25 06:35
Physical Exam
-
General: No Acute Distress
Abdomen: Soft, Non Distended and Tender (minimal LLQ; no peritoneal signs)
Extremities: No Calf Tenderness
--- NOTE | 2025-02-18 11:26 | PTCARENOTE ---
Assumed care of pt from previous nurse. Pt with some tenderness to abdomen, tolerable. pt with poor appetite. pt call elena is within reach, pt rings giovana., bed alarm in place. Pt is on tele running afib. will cont to monitor.
[2025-02-18 11:32] VITALS: BP 128/15
[2025-02-18 15:46] VITALS: BP 131/87
[2025-02-18] MEDS: LOVENOX 40 MG SC (17:43)
[2025-02-18 19:25] VITALS: BP 148/87
[2025-02-18 23:16] VITALS: BP 143/87
[2025-02-19] MEDS: ZOSYN 50 IV ×4 (01:55→21:14)
[2025-02-19 03:25] VITALS: BP 131/91
[2025-02-19 06:18] LABS: Hematocrit 40.4 % (39.0-52.0); Hemoglobin 13.9 g/dL (13.0-18.0); Mean Corp Hgb Conc. 34.4 g/dL (33.0-37.0); Mean Corpuscular Volume 89.6 fL (80.0-94.0); Platelet Count 218 10^3/uL (130-400); Red Cell Dist. Width 14.1 % (11.5-14.5)
[2025-02-19 06:48] LABS: ALT (SGPT) 14 U/L (0-50); AST (SGOT) 24 U/L (17-59); Albumin 2.9 g/dl (3.5-5.0); Alkaline Phosphatase 82 U/L (38-126); Blood Urea Nitrogen 11 mg/dl (9-20); Calcium 9.0 mg/dl (8.4-10.2); Carbon Dioxide 28 mmol/L (22-30); Chloride 101 mmol/L (98-107); Estimated Creatinine Clearance 76 ml/min; Glucose 105 mg/dl (70-99); Potassium 3.3 mmol/L (3.5-5.1); Sodium 136 mmol/L (135-145); Total Protein 5.4 g/dl (6.3-8.2); eGFR > 60.00
[2025-02-19 07:30] VITALS: BP 151/96
[2025-02-19 08:05] LABS: Reticulocyte Count 1.1 % (0.4-2.8)
[2025-02-19 08:25] LABS: LDH 180 U/L (120-246); Magnesium 1.5 mg/dl (1.6-2.3)
[2025-02-19] MEDS: LIPITOR 80 MG PO (09:13)
[2025-02-19] MEDS: FLOMAX 0.4 MG PO (09:13)
[2025-02-19] MEDS: NORVASC 5 MG PO (09:13)
[2025-02-19] MEDS: LOW STRENGTH ASPIRIN 81 MG PO (09:13)
[2025-02-19] MEDS: ZYLOPRIM 300 MG PO (09:13)
[2025-02-19] MEDS: TYLENOL 650 MG PO (09:15)
[2025-02-19] MEDS: COMPAZINE 5 MG IV (09:24)
--- NOTE | 2025-02-19 09:50 | W.PN.HOSP.TC ---
Today's Communication/Plan
-
leukocytosis improving
cont Abx
Heparin bridging
Assessment / Plan
Assessment / Plan
74yo M with HTN, HLD, BPH, gout, CAD s/p PCI, Hx of CVA with mild cognitive defficit, aquired thrombbophilia on Xarelto, DAVE came with worsening L abd pain and vomiting, found diverticulittis with microperforation
A/P:
#Divetticulitits with microperforation
No abscess seen on CR
Zosyn
Advance diet
watch for new or worsening symptoms - repeat CT abd if ny
Colonoscopy in 4-6 weeks upon resolution advised
Colorectal Sx consult
#PUD
#GERD
PPI BID
Tums
PPI
#Asymptomatic cholelithiasis
#Small hepatic cysts
#Nephrolithiasis
outpatient f/u
#Thrombophilia
hold Xarelto until surgical intervention excluded, heparin bridging
#PreDM
low carb diet
#hypokalemia
#Hypomagnesemia
replete and follow
#Mild cognitive impairment
#Gout
#Essential HTN
#BPH
#Anxiety
cont home meds
watc for urinary retention
DVT ppx heparin
Full code
I have spent at least 51min reviewing chart, test results, communication with consultants and providing direct patient care
Anticipated Discharge: > 48 hours
Subjective/Interval History
-
Date of Service: February 19, 2025
Objective Data
-
Labs:
Laboratory Results
02/19/25 02/19/25
05:19 09:48
WBC 16.9 H
Hgb 13.9
Hct 40.4
Plt Count 218
APTT Pending
Sodium 136
Potassium 3.3 L
Chloride 101
Carbon Dioxide 28
BUN 11
Creatinine 0.8
Glucose 105 H
Calcium 9.0
Total Bilirubin 2.4 H
AST 24
ALT 14
Alkaline Phosphatase 82
Vital Signs:
Vital Signs
Temp Pulse Resp BP Pulse Ox
100.8 F H 99 18 151/96 94
02/19/25 07:30 02/19/25 09:13 02/19/25 07:30 02/19/25 09:13 02/19/25 07:30
I&O
02/18/25 02/19/25 02/20/25
06:59 06:59 06:59
Intake Total 1100 / 1100 720 / 720
Output Total 750 / 750 200 / 200
Balance 350 / 350 520 / 520
Review of Systems
-
History Source: Patient
All other systems: Reviewed and negative
Physical Exam
-
General: No Apparent Distress
HEENT: Normocephalic
Respiratory: Clear to Auscultation
Cardiac: Regular Rhythm
GI: Soft, Nondistended and Tender (L)
Musculoskeletal: No Clubbing, No Cyanosis and No Edema
Neuro: Awake, Alert, Oriented, AO x 3 and No Motor Deficits
Psych: Calm and Apparent Dementia
[2025-02-19] MEDS: KCL 270 MEQ IV (10:03)
[2025-02-19] MEDS: MAGNESIUM SULFATE 50 IV (10:08)
[2025-02-19] MEDS: PROTONIX IV 40 MG IV ×2 (10:10→21:14)
[2025-02-19] MEDS: NSS (PRESERVATIVE FREE) 10 ML IV ×2 (10:10→21:14)
[2025-02-19 10:41] LABS: APTT 44.4 Sec (23.4-35.0)
[2025-02-19] MEDS: HEPARIN 25000 UNITS/250 ML IV (10:51)
[2025-02-19 12:00] VITALS: BP 147/88
--- NOTE | 2025-02-19 12:40 | W.PN.GS2 ---
Addendum entered and electronically signed by Yogi Nieto MD 02/19/25 13:36:
Patient seen and examined.
Reports abdominal soreness has improved. Initial diarrhea has improved. No nausea or vomiting. No fevers.
Gen NAD
Abd: soft, NT/ND, non-peritoneal
Patient is a 74 yo M with first episode of diverticulitis with small amount of air adjacent to the sigmoid colon but no abscess on imaging
Afebrile, VSS
WBC trending down but still elevated
Hypomagnesemia/hypokalemia
Plan:
Electrolyte replacement as per primary team
Continue ABX
Trend WBC/exams
Advance to LRD
Original Note:
Today's Communication / Plan
-
Advance diet, trend labs
Assessment / Plan
-
74 yo male with first episdoe of diverticulitis with small amount of air adjacent to the sigmoid colon but no abscess on imaging
Afebrile, VSS
WBC trending down but still elevated
Hypomagnesemia/hypokalemia
Plan:
Electrolyte replacement as per primary team
Continue ABX
Trend WBC/exams
Advance to LRD
Subjective Data
-
Date of Service: February 19, 2025
Pt seen and examined at bedside with Dr. Nieto. Denies n/v. Feeling more comfortable. Diarrhea present but a bit slowed. Passing a good deal more flatus. Denies n/v. Pain better.
Objective Data
-
Intake and Output
02/18/25 02/19/25 02/20/25
06:59 06:59 06:59
Intake Total 1100 / 1100 720 / 720
Output Total 750 / 750 200 / 200
Balance 350 / 350 520 / 520
Intake:
Oral fluids 720 / 720
IV fluids (Total) 1100 / 1100
Output:
Urine, Voided 750 / 750 200 / 200
Other:
Number of approximated MODERATE 2 2
amounts of urine
Vital Signs
Temp Pulse Resp BP Pulse Ox
98.4 F 99 18 151/96 94
02/19/25 10:15 02/19/25 09:13 02/19/25 07:30 02/19/25 09:13 02/19/25 07:30
Lab Results
02/19/25 05:19
02/19/25 05:19
Calcium 9.0 mg/dl (8.4-10.2) 02/19/25 05:19
Phosphorus 2.5 mg/dl (2.5-4.5) 02/19/25 05:19
Magnesium 1.5 mg/dl (1.6-2.3) L 02/19/25 05:19
Total Bilirubin 2.4 mg/dl (0.2-1.3) H 02/19/25 05:19
Direct Bilirubin 0.4 mg/dl (0.0-0.4) 02/19/25 05:19
AST 24 U/L (17-59) 02/19/25 05:19
ALT 14 U/L (0-50) 02/19/25 05:19
Alkaline Phosphatase 82 U/L (38-126) 02/19/25 05:19
Total Protein 5.4 g/dl (6.3-8.2) L 02/19/25 05:19
Albumin 2.9 g/dl (3.5-5.0) L 02/19/25 05:19
Physical Exam
-
NAD
ABD soft, nt, nd
[2025-02-19 16:00] VITALS: BP 139/74
[2025-02-19 18:46] LABS: APTT 92.1 Sec (23.4-35.0)
[2025-02-19 19:59] VITALS: BP 131/70
[2025-02-19] MEDS: FLUSH (NSS) 2 FLUSH IV (21:14)
[2025-02-19 23:05] VITALS: BP 126/74
[2025-02-20 01:49] LABS: APTT 133.3 Sec (23.4-35.0)
[2025-02-20] MEDS: ZOSYN 50 IV ×4 (02:37→20:18)
[2025-02-20] MEDS: FLUSH (NSS) 2 FLUSH IV (02:38)
[2025-02-20 03:32] VITALS: BP 140/77
[2025-02-20] MEDS: HEPARIN 25000 UNITS/250 ML IV (06:55)
[2025-02-20 07:45] VITALS: BP 127/69
[2025-02-20] MEDS: FLOMAX 0.4 MG PO (09:26)
[2025-02-20] MEDS: LIPITOR 80 MG PO (09:27)
[2025-02-20] MEDS: PROTONIX IV 40 MG IV ×2 (09:27→20:18)
[2025-02-20] MEDS: ZYLOPRIM 300 MG PO (09:27)
[2025-02-20] MEDS: LOW STRENGTH ASPIRIN 81 MG PO (09:27)
[2025-02-20] MEDS: NORVASC 5 MG PO (09:27)
[2025-02-20] MEDS: NSS (PRESERVATIVE FREE) 10 ML IV ×2 (09:27→20:18)
[2025-02-20 09:31] LABS: APTT 108.6 Sec (23.4-35.0)
[2025-02-20 09:36] LABS: Hematocrit 37.7 % (39.0-52.0); Hemoglobin 13.0 g/dL (13.0-18.0); Mean Corp Hgb Conc. 34.5 g/dL (33.0-37.0); Mean Corpuscular Volume 88.5 fL (80.0-94.0); Nucleated Red Blood Cells % 0 % (-); Platelet Count 209 10^3/uL (130-400); Red Cell Dist. Width 14.1 % (11.5-14.5)
[2025-02-20 10:26] LABS: ALT (SGPT) 26 U/L (0-50); AST (SGOT) 50 U/L (17-59); Albumin 2.7 g/dl (3.5-5.0); Alkaline Phosphatase 74 U/L (38-126); Blood Urea Nitrogen 10 mg/dl (9-20); Calcium 8.4 mg/dl (8.4-10.2); Carbon Dioxide 26 mmol/L (22-30); Chloride 106 mmol/L (98-107); Estimated Creatinine Clearance 87 ml/min; Glucose 101 mg/dl (70-99); Magnesium 1.9 mg/dl (1.6-2.3); Potassium 4.1 mmol/L (3.5-5.1); Sodium 134 mmol/L (135-145); Total Protein 5.1 g/dl (6.3-8.2); eGFR > 60.00
--- NOTE | 2025-02-20 10:36 | W.PN.HOSP.TC ---
Today's Communication/Plan
-
switch to Xarelto tonight
cont Abx, if CBC improving and still tolerating diet - DC in AM
Assessment / Plan
Assessment / Plan
74yo M with HTN, HLD, BPH, gout, CAD s/p PCI, Hx of CVA with mild cognitive defficit, aquired thrombbophilia on Xarelto, DAVE came with worsening L abd pain and vomiting, found diverticulitis with microperforation. Improved on Abx, started to
tolerate solids
A/P:
#Diverticulitis with microperforation
No abscess seen on CR
Zosyn
Advance diet
watch for new or worsening symptoms - repeat CT abd if ny
Colonoscopy in 4-6 weeks upon resolution advised
Colorectal Sx consult
#PUD
#GERD
PPI BID
Tums
PPI
#Asymptomatic cholelithiasis
#Small hepatic cysts
#Nephrolithiasis
outpatient f/u
#Thrombophilia
hold Xarelto until surgical intervention excluded, heparin bridging
#PreDM
low carb diet
#hypokalemia
#Hypomagnesemia
replete and follow
#Mild cognitive impairment
#Gout
#Essential HTN
#BPH
#Anxiety
cont home meds
watc for urinary retention
DVT ppx heparin
Full code
I have spent at least 51min reviewing chart, test results, communication with consultants and providing direct patient care
Anticipated Discharge: Within 24 hours
Subjective/Interval History
-
Date of Service: February 20, 2025
Objective Data
-
Labs:
Laboratory Results
02/20/25 02/20/25 02/20/25
01:10 09:10 15:00
WBC 11.8 H
Hgb 13.0
Hct 37.7 L
Plt Count 209
APTT 133.3 H 108.6 H Pending
Sodium 134 L
Potassium 4.1
Chloride 106
Carbon Dioxide 26
BUN 10
Creatinine 0.7
Glucose 101 H
Calcium 8.4
Total Bilirubin 1.2 D
AST 50
ALT 26
Alkaline Phosphatase 74
Vital Signs:
Vital Signs
Temp Pulse Resp BP Pulse Ox
98.3 F 50 18 127/69 96
02/20/25 07:45 02/20/25 07:45 02/20/25 07:45 02/20/25 07:45 02/20/25 07:45
I&O
02/19/25 02/20/25 02/21/25
06:59 06:59 06:59
Intake Total 720 / 720 1000 / 1000
Output Total 200 / 200 575 / 575
Balance 520 / 520 425 / 425
Review of Systems
-
History Source: Patient
All other systems: Reviewed and negative
Physical Exam
-
General: No Apparent Distress and Comfortable
Neuro: Awake, Alert, Oriented and AO x 3
Psych: Calm
[2025-02-20 12:01] VITALS: BP 125/65
--- NOTE | 2025-02-20 13:03 | W.PN.GS2 ---
Today's Communication / Plan
-
-- Transition to Augmentin PO antibiotics on DC for 7 days
-- OK to DC from surgical perspective
Assessment / Plan
-
74 yo male with first episdoe of diverticulitis with small amount of air adjacent to the sigmoid colon but no abscess on imaging
Afebrile, VSS
WBC trending down to yeah 48 hours yeah they want to have her yeah I think
Clinical improvement. No plans for surgical intervention. Okay for D/C from surgical perspective.
Plan:
-- LRD
-- Transition to Augmentin PO antibiotics on DC for 7 days
-- OK to DC from surgical perspective
Subjective Data
-
Date of Service: February 20, 2025
No complaints. Pain well-controlled. No fevers. No nausea or vomiting. Passing nonbloody stools.
Objective Data
-
Intake and Output
02/19/25 02/20/25 02/21/25
06:59 06:59 06:59
Intake Total 720 / 720 1000 / 1000
Output Total 200 / 200 575 / 575
Balance 520 / 520 425 / 425
Intake:
Oral fluids 720 / 720 480 / 480
IV piggybacks 520 / 520
Output:
Urine, Voided 200 / 200 575 / 575
Other:
Number of approximated SMALL 3
amounts of urine
Number of approximated MODERATE 2 1
amounts of urine
Number of unmeasured liquid
stools
Rectum 1
Vital Signs
Temp Pulse Resp BP Pulse Ox
98.3 F 53 16 125/65 97
02/20/25 12:01 02/20/25 12:01 02/20/25 12:01 02/20/25 12:01 02/20/25 12:01
Lab Results
02/20/25 09:10
02/20/25 09:10
Calcium 8.4 mg/dl (8.4-10.2) 02/20/25 09:10
Phosphorus 2.5 mg/dl (2.5-4.5) 02/19/25 05:19
Magnesium 1.9 mg/dl (1.6-2.3) 02/20/25 09:10
Total Bilirubin 1.2 mg/dl (0.2-1.3) D 02/20/25 09:10
Direct Bilirubin 0.4 mg/dl (0.0-0.4) 02/19/25 05:19
AST 50 U/L (17-59) 02/20/25 09:10
ALT 26 U/L (0-50) 02/20/25 09:10
Alkaline Phosphatase 74 U/L (38-126) 02/20/25 09:10
Total Protein 5.1 g/dl (6.3-8.2) L 02/20/25 09:10
Albumin 2.7 g/dl (3.5-5.0) L 02/20/25 09:10
Physical Exam
-
Gen: NAD
Abd: soft, NT, ND, non-peritoneal
Patient has a castellanos catheter: No
Patient has a central line: No
[2025-02-20 16:23] VITALS: BP 129/89
[2025-02-20] MEDS: XARELTO 20 MG PO (17:50)
[2025-02-20 20:15] VITALS: BP 128/91
[2025-02-20] MEDS: FLUSH (NSS) 1 FLUSH IV (20:18)
[2025-02-20] MEDS: TUMS CHEWABLE TABLET 200 MG PO (20:57)
[2025-02-20 23:36] VITALS: BP 124/78
[2025-02-21] MEDS: ZOSYN 50 IV (02:56)
[2025-02-21] MEDS: FLUSH (NSS) 2 FLUSH IV (03:02)
[2025-02-21 03:29] VITALS: BP 126/87
[2025-02-21 07:15] VITALS: BP 144/79
[2025-02-21 08:02] LABS: Hematocrit 38.2 % (39.0-52.0); Hemoglobin 13.2 g/dL (13.0-18.0); Mean Corp Hgb Conc. 34.6 g/dL (33.0-37.0); Mean Corpuscular Volume 89.9 fL (80.0-94.0); Platelet Count 218 10^3/uL (130-400); Red Cell Dist. Width 13.8 % (11.5-14.5)
--- NOTE | 2025-02-21 09:00 | W.PN.HOSP.TC ---
Addendum entered and electronically signed by Meng Arteaga MD 02/21/25 09:07:
#Solomon
meeting criteria by normal LDH and retics with indirect bilirubinemia
Original Note:
Today's Communication/Plan
-
dc
Assessment / Plan
Assessment / Plan
74yo M with HTN, HLD, BPH, gout, CAD s/p PCI, Hx of CVA with mild cognitive defficit, aquired thrombbophilia on Xarelto, DAVE came with worsening L abd pain and vomiting, found diverticulitis with microperforation. Improved on Abx, started to
tolerate solids, leukocytosis resolved. GenSx advised to d/c on 7 days of Abx. Recommended for colonoscopy in 4-6 weeks - referral provided, patient will need to schedule
A/P:
#Diverticulitis with microperforation
No abscess seen on CR
Zosyn
Advance diet
watch for new or worsening symptoms - repeat CT abd if ny
Colonoscopy in 4-6 weeks upon resolution advised
Colorectal Sx consult
#PUD
#GERD
PPI BID
Tums
PPI
#Asymptomatic cholelithiasis
#Small hepatic cysts
#Nephrolithiasis
outpatient f/u
#Thrombophilia
Xarelto
#PreDM
low carb diet
#hypokalemia
#Hypomagnesemia
replete and follow
#Mild cognitive impairment
#Gout
#Essential HTN
#BPH
#Anxiety
cont home meds
watch for urinary retention
DVT ppx xarelto
Full code
I have spent at least 36min reviewing chart, test results, communication with consultants and providing direct patient care
Anticipated Discharge: Today
Subjective/Interval History
-
Date of Service: February 21, 2025
Objective Data
-
Labs:
Laboratory Results
02/20/25 02/21/25
23:39 07:03
WBC 9.6
Hgb 13.2
Hct 38.2 L
Plt Count 218
APTT Cancelled
Vital Signs:
Vital Signs
Temp Pulse Resp BP Pulse Ox
97.6 F 63 20 144/79 95
02/21/25 07:15 02/21/25 07:15 02/21/25 07:15 02/21/25 07:15 02/21/25 07:15
I&O
02/20/25 02/21/25 02/22/25
06:59 06:59 06:59
Intake Total 1000 / 1000 1120 / 1120
Output Total 575 / 575 350 / 350
Balance 425 / 425 770 / 770
Review of Systems
-
History Source: Patient
All other systems: Reviewed and negative
Physical Exam
-
General: No Apparent Distress
HEENT: Normocephalic
Respiratory: Clear to Auscultation
GI: Soft, Nontender and Nondistended
Neuro: Awake, Alert, Oriented and AO x 3
Psych: Calm and Apparent Dementia
--- NOTE | 2025-02-21 09:06 | W.DCSUMMARY ---
Discharge Summary
Discharge Data
Date of Admission: 02/17/25
Date of Discharge: 02/21/25
-
Pending Results: No
Hospital Course
74yo M with HTN, HLD, BPH, gout, CAD s/p PCI, Hx of CVA with mild cognitive defficit, aquired thrombbophilia on Xarelto, DAVE came with worsening L abd pain and vomiting, found diverticulitis with microperforation. Improved on Abx, started to
tolerate solids, pain resolved, leukocytosis resolved. GenSx advised to d/c on 7 days of Abx. Recommended for colonoscopy in 4-6 weeks - referral provided, patient will need to schedule. Medcially stable for d/c home
I have spent at least 36min reviewing chart, test results, communication with consultants and providing direct patient care
Patient was managed for:
#Diverticulitis with microperforation
#PUD
#GERD
#Asymptomatic cholelithiasis
#Small hepatic cysts
#Nephrolithiasis
#Thrombophilia
#PreDM
#hypokalemia
#Hypomagnesemia
#Mild cognitive impairment
#Gout
#Essential HTN
#BPH
#Anxiety
Discharge Plan
-
Patient Disposition: Home (Routine Discharge)
Discharge Diagnosis/Procedures: Diverticulitis
Diet: Low Fiber
Driving Restrictions: As prior to admission
Instructions: Low-fiber diet
Referrals:
Tiago Qureshi MD [Active, [facility]] - in two to three weeks
Ousmane Thacker MD [Family Provider, Family Practice]
Prescriptions:
New
amoxicillin-pot clavulanate 875-125 mg Tablet
1 tab PO Q12 Qty: 13 0RF
pantoprazole 40 mg tablet,delayed release (DR/EC)
40 mg PO DAILY Qty: 30 0RF
Continued
allopurinol 300 MG tablet
300 mg PO DAILY
amlodipine 5 MG tablet
5 mg PO DAILY
atorvastatin 80 MG tablet
80 mg PO DAILY
Xarelto 20 MG tablet
20 mg PO DAILY
tamsulosin 0.4 mg capsule
0.4 mg PO DAILY
escitalopram oxalate 10 mg tablet
10 mg PO DAILY
Discharge Orders:
Discharge Patient (As Directed); Ordered 02/21/25
Ordered By: Meng Arteaga
Discharge Date and Time
Print Language: BHUTANESE
[2025-02-21] MEDS: ZYLOPRIM 300 MG PO (09:25)
[2025-02-21] MEDS: LIPITOR 80 MG PO (09:25)
[2025-02-21] MEDS: FLOMAX 0.4 MG PO (09:25)
[2025-02-21] MEDS: NORVASC 5 MG PO (09:25)
[2025-02-21] MEDS: LOW STRENGTH ASPIRIN 81 MG PO (09:25)
[2025-02-21] MEDS: NSS (PRESERVATIVE FREE) 10 ML IV (09:26)
[2025-02-21] MEDS: PROTONIX IV 40 MG IV (09:26)
[2025-02-21] MEDS: AUGMENTIN 875 MG/125 MG 1 TABLET PO (09:28)
[2025-02-21] MEDS: ZOSYN IV (09:36)
--- NOTE | 2025-02-21 10:37 | W.PN.UPDATE ---
Update Note
Progress Note Update
Patient pharmacy closed and he is limited in selection of the pharmacies due to insurance as per RN. RN will provide one dose of Augmentin upon d/c to be taken at PM at home and patient will pickup the rest of meds in AM
[2025-02-21 11:05] VITALS: BP 135/88
--- NOTE | 2025-02-21 11:30 | PTCARENOTE ---
Patient sent with single dose of Augmentin to cover PM dose 02/21 per MD order.
--- NOTE | 2025-02-21 14:29 | W.PN.CRS1 ---
Today's Communication / Plan
-
As below
Assessment/Plan
-
74-year-old male with PMH of HTN, HLD, BPH, CAD s/p stent, CVA (mild cognitive deficit), thrombophilia (on Xarelto), DAVE, A-fib, gout, kidney stones who presented with abdominal pain was found to have diverticulitis with microperforation, treated
nonoperatively
AFVSS
WBC 9.6 from 11.8
�Continue low residue diet
� Continue pain control with Tylenol and Dilaudid as needed
� Okay to restart Xarelto
� Continue antibiotics, okay to switch to Augmentin as outpatient
� Appreciate hospitalist; okay for DC, follow-up with Dr. Qureshi
Subjective Data
Subjective Data
Date of Service: February 21, 2025
No overnight events. Tolerating diet without N/V and minimal abdominal pain. Had a BM recently without blood.
Objective Data
-
Vital Signs
Temp Pulse Resp BP Pulse Ox
98.3 F 78 16 135/88 98
02/21/25 11:05 02/21/25 11:05 02/21/25 11:05 02/21/25 11:05 02/21/25 11:05
Intake & Output
02/20/25 02/21/25 02/22/25
06:59 06:59 06:59
Intake Total 1000 / 1000 1120 / 1120 200 / 200
Output Total 575 / 575 350 / 350
Balance 425 / 425 770 / 770 200 / 200
Intake:
Oral fluids 480 / 480 1020 / 1020 200 / 200
IV piggybacks 520 / 520 100 / 100
Output:
Urine, Voided 575 / 575 350 / 350
Other:
Number of approximated SMALL 3
amounts of urine
Number of approximated MODERATE 1 2 3
amounts of urine
Number of unmeasured liquid
stools
Rectum 1
Lab Results
02/21/25 07:03
02/20/25 09:10
Physical Exam
-
General: No Acute Distress and AOx3
HEENT: Grossly Normal
Abdomen: Soft, Non Distended, Tender (Minimally tender in the LLQ), No Guarding and No Rebound
Skin: Warm and Dry
== END 2025-02-21 12:00 | disposition home or self-care (01) | DRG 392 ==
LOC: 4 WEST ACU 04:13
PROVIDERS: Hospitalist; Physician Assistant; ADMITTING PHYSICIAN Hospitalist; ATTENDING PHYSICIAN Internal Medicine; EMERGENCY PHYSICIAN Emergency Medicine; FAMILY PHYSICIAN Family Medicine; OTHER PHYSICIAN Surgery
DX: K57.20 Diverticulitis of large intestine with perforation and abscess without bleeding (principal); D68.59 Other primary thrombophilia; F03.94 Unspecified dementia, unspecified severity, with anxiety; I48.21 Permanent atrial fibrillation; I10 Essential (primary) hypertension; E78.00 Pure hypercholesterolemia, unspecified; N40.0 Benign prostatic hyperplasia without lower urinary tract symptoms; I25.10 Atherosclerotic heart disease of native coronary artery without angina pectoris; Z95.5 Presence of coronary angioplasty implant and graft; Z86.73 Personal history of transient ischemic attack (TIA), and cerebral infarction without residual deficits; G47.33 Obstructive sleep apnea (adult) (pediatric); K21.9 Gastro-esophageal reflux disease without esophagitis; K80.20 Calculus of gallbladder without cholecystitis without obstruction; K76.89 Other specified diseases of liver; N20.0 Calculus of kidney; R73.03 Prediabetes; E87.6 Hypokalemia; E83.42 Hypomagnesemia; Z79.899 Other long term (current) drug therapy; Z79.01 Long term (current) use of anticoagulants; K64.8 Other hemorrhoids; Z87.442 Personal history of urinary calculi
CPT/HCPCS: 74177; 80048; 80053; 81003; 81015; 82248; 83605; 83615; 83690; 83735; 84100; 85025; 85027; 85045; 85730; 93005; 96374; 99285; Q9967

== ENCOUNTER 2025-03-04 18:51 | Inpatient (IN) | payer OTHER, SELFPAY ==
[2025-03-04] VITALS (8 sets, daily range): BP systolic 133–148; BP diastolic 67–93; BMI 26.3; BMI 25.3
--- NOTE | 2025-03-04 12:39 | ED.GENMED ---
History of Present Illness
<Frankie Wells PA-C - Last Filed: 03/04/25 16:36>
General
Chief Complaint: Abdominal Pain
Source: patient
Exam Limitations: none
Time Seen by Provider: 03/04/25 12:27
History of Present Illness
History of Present Illness:
74-year-old male presents with persistent mild to moderate dull lingering pain to the left lower quadrant. He was discharged from this hospital about a week ago for diverticulitis with microperforations. He finished his antibiotics about 5 days
ago. He had the onset of rigors last evening associated with this discomfort. He denies any urinary symptoms. He had a normal bowel movement without any blood this morning. No cough or shortness of breath. No other complaints at this time
Past History
<Frankie Wells PA-C - Last Filed: 03/04/25 16:36>
Past History
ED Past Medical History: Arrthythmia (Atrial fibrillation), CAD, GERD, HTN, Hypercholesterolemia, [place] and Other (Kidney stones, stomach ulcers, gout)
ED Past Surgical History: Cardiac
Social History
Tobacco: Non-smoker
Alcohol: None
Drug: None
Personal:
Living: with family
Phy Exam
<Frankie Wells PA-C - Last Filed: 03/04/25 16:36>
Physical Exam
Physical Exam:
General: Well-appearing male no acute respiratory distress
HEENT: Normocephalic atraumatic
Heart: Regular rate and rhythm
Lungs: Clear no wheeze
Abdomen is soft tender to the left lower quadrant no guarding
Course
<DIANA Sanchez Last Filed: 03/04/25 16:36>
Orders/Labs/Results
Orders:
Orders
03/04/25 12:38
CT Abd/pelvis W Iv Cont Urgent
Comment:
Reason For Exam: llq pain, chills, recent microperforations
03/04/25 12:54
Complete Blood Count/With Diff Urgent
Comprehensive Metabolic Panel Urgent
Urinalysis Reflex To Culture Urgent
Date Specimen was Collected: 03/04/25
Time Specimen was Collected: 12:44
Urine Microscopic Reflex Cult Urgent
Urine Culture Urgent
TORSTEN Source: U
Specimen Description:
Date Specimen was Collected: 03/04/25
Time Specimen was Collected: 12:44
03/04/25 16:36
Piperacillin/Tazo 3.375 Gram [Zosyn] 3.375 gram in 50 ml IV NOW
03/04/25 16:39
0.9% Sodium Chloride 1000 ml [Nss] 1,000 ml IV BOLUS
Abnormal Lab Results
03/04/25
12:54
WBC 16.7 H 10^3/uL
(4.8-10.8)
RBC 4.27 L 10^6/uL
(4.70-6.10)
Hct 38.9 L %
(39.0-52.0)
MCH 31.4 H pg
(27.0-31.0)
RDW 15.5 H %
(11.5-14.5)
Abs Immat Gran (auto) 0.3 H 10^3/uL
(0-0.05)
Absolute Neuts (auto) 14.2 H 10^3/uL
(1.4-6.5)
Absolute Lymphs (auto) 1.0 L 10^3/uL
(1.2-3.4)
Absolute Monos (auto) 1.1 H 10^3/uL
(0.1-0.6)
Immature Gran % 1.5 H %
(0-0.5)
Neutrophils % 85.3 H %
(42.2-75.2)
Lymphocytes % 6.0 L %
(20.5-51.1)
Creatinine 0.6 L mg/dL
(0.7-1.3)
Glucose 101 H mg/dl
(70-99)
Total Bilirubin 1.7 H mg/dl
(0.2-1.3)
Leukocyte Esterase Rfl 1+ A
(Negative)
Urine RBC 7-10 A /HPF
(0-2)
Urine WBC (Reflex) 11-15 A /HPF
(0-5)
Urine Albumin (Reflex) 1+ A
(Neg - Trace)
03/04/25 12:54
03/04/25 12:54
Vital Signs
Initial and Last Documented VS:
Initial Vital Signs
Temp Pulse Resp BP Pulse Ox
98.0 F 78 18 148/87 98
03/04/25 11:23 03/04/25 11:23 03/04/25 11:23 03/04/25 11:23 03/04/25 11:23
Last Documented Vital Signs
Temp Pulse Resp BP Pulse Ox
98.0 F 78 18 146/83 97
03/04/25 11:23 03/04/25 11:23 03/04/25 11:23 03/04/25 16:26 03/04/25 18:00
<Kimberly Velasquez PA-C - Last Filed: 03/04/25 18:05>
Orders/Labs/Results
Orders:
Orders
03/04/25 12:38
CT Abd/pelvis W Iv Cont Urgent
Comment:
Reason For Exam: llq pain, chills, recent microperforations
03/04/25 12:54
Complete Blood Count/With Diff Urgent
Comprehensive Metabolic Panel Urgent
Urinalysis Reflex To Culture Urgent
Date Specimen was Collected: 03/04/25
Time Specimen was Collected: 12:44
Urine Microscopic Reflex Cult Urgent
Urine Culture Urgent
TORSTEN Source: U
Specimen Description:
Date Specimen was Collected: 03/04/25
Time Specimen was Collected: 12:44
03/04/25 16:36
Piperacillin/Tazo 3.375 Gram [Zosyn] 3.375 gram in 50 ml IV NOW
03/04/25 16:39
0.9% Sodium Chloride 1000 ml [Nss] 1,000 ml IV BOLUS
Abnormal Lab Results
03/04/25
12:54
WBC 16.7 H 10^3/uL
(4.8-10.8)
RBC 4.27 L 10^6/uL
(4.70-6.10)
Hct 38.9 L %
(39.0-52.0)
MCH 31.4 H pg
(27.0-31.0)
RDW 15.5 H %
(11.5-14.5)
Abs Immat Gran (auto) 0.3 H 10^3/uL
(0-0.05)
Absolute Neuts (auto) 14.2 H 10^3/uL
(1.4-6.5)
Absolute Lymphs (auto) 1.0 L 10^3/uL
(1.2-3.4)
Absolute Monos (auto) 1.1 H 10^3/uL
(0.1-0.6)
Immature Gran % 1.5 H %
(0-0.5)
Neutrophils % 85.3 H %
(42.2-75.2)
Lymphocytes % 6.0 L %
(20.5-51.1)
Creatinine 0.6 L mg/dL
(0.7-1.3)
Glucose 101 H mg/dl
(70-99)
Total Bilirubin 1.7 H mg/dl
(0.2-1.3)
Leukocyte Esterase Rfl 1+ A
(Negative)
Urine RBC 7-10 A /HPF
(0-2)
Urine WBC (Reflex) 11-15 A /HPF
(0-5)
Urine Albumin (Reflex) 1+ A
(Neg - Trace)
03/04/25 12:54
03/04/25 12:54
Vital Signs
Initial and Last Documented VS:
Initial Vital Signs
Temp Pulse Resp BP Pulse Ox
98.0 F 78 18 148/87 98
03/04/25 11:23 03/04/25 11:23 03/04/25 11:23 03/04/25 11:23 03/04/25 11:23
Last Documented Vital Signs
Temp Pulse Resp BP Pulse Ox
98.0 F 78 18 146/83 97
03/04/25 11:23 03/04/25 11:23 03/04/25 11:23 03/04/25 16:26 03/04/25 18:00
<Alex Tong MD - Last Filed: 03/04/25 18:01>
Orders/Labs/Results
Orders:
Orders
03/04/25 12:38
CT Abd/pelvis W Iv Cont Urgent
Comment:
Reason For Exam: llq pain, chills, recent microperforations
03/04/25 12:54
Complete Blood Count/With Diff Urgent
Comprehensive Metabolic Panel Urgent
Urinalysis Reflex To Culture Urgent
Date Specimen was Collected: 03/04/25
Time Specimen was Collected: 12:44
Urine Microscopic Reflex Cult Urgent
Urine Culture Urgent
TORSTEN Source: U
Specimen Description:
Date Specimen was Collected: 03/04/25
Time Specimen was Collected: 12:44
03/04/25 16:36
Piperacillin/Tazo 3.375 Gram [Zosyn] 3.375 gram in 50 ml IV NOW
03/04/25 16:39
0.9% Sodium Chloride 1000 ml [Nss] 1,000 ml IV BOLUS
Abnormal Lab Results
03/04/25
12:54
WBC 16.7 H 10^3/uL
(4.8-10.8)
RBC 4.27 L 10^6/uL
(4.70-6.10)
Hct 38.9 L %
(39.0-52.0)
MCH 31.4 H pg
(27.0-31.0)
RDW 15.5 H %
(11.5-14.5)
Abs Immat Gran (auto) 0.3 H 10^3/uL
(0-0.05)
Absolute Neuts (auto) 14.2 H 10^3/uL
(1.4-6.5)
Absolute Lymphs (auto) 1.0 L 10^3/uL
(1.2-3.4)
Absolute Monos (auto) 1.1 H 10^3/uL
(0.1-0.6)
Immature Gran % 1.5 H %
(0-0.5)
Neutrophils % 85.3 H %
(42.2-75.2)
Lymphocytes % 6.0 L %
(20.5-51.1)
Creatinine 0.6 L mg/dL
(0.7-1.3)
Glucose 101 H mg/dl
(70-99)
Total Bilirubin 1.7 H mg/dl
(0.2-1.3)
Leukocyte Esterase Rfl 1+ A
(Negative)
Urine RBC 7-10 A /HPF
(0-2)
Urine WBC (Reflex) 11-15 A /HPF
(0-5)
Urine Albumin (Reflex) 1+ A
(Neg - Trace)
03/04/25 12:54
03/04/25 12:54
Vital Signs
Initial and Last Documented VS:
Initial Vital Signs
Temp Pulse Resp BP Pulse Ox
98.0 F 78 18 148/87 98
03/04/25 11:23 03/04/25 11:23 03/04/25 11:23 03/04/25 11:23 03/04/25 11:23
Last Documented Vital Signs
Temp Pulse Resp BP Pulse Ox
98.0 F 78 18 146/83 97
03/04/25 11:23 03/04/25 11:23 03/04/25 11:23 03/04/25 16:26 03/04/25 18:00
<Frankie Wells PA-C - Last Filed: 03/04/25 16:36>
MDM/Problems Addressed
Differential Diagnosis Includes:
Left lower quadrant pain with rigors. Consider recurrent diverticulitis versus abscess versus UTI
Check labs. Repeat CT scan. Patient overall nontoxic
<Frankie Wells PA-C - Last Filed: 03/04/25 16:36>
*Pulse Oximetry
SaO2: 98
Oxygen Mode of Delivery: Room air
<Kimberly Velasquez PA-C - Last Filed: 03/04/25 18:05>
*Pulse Oximetry
Patient hypoxic: no
*Critical Care Note
Total Time (30-74mins, 75-104mins- exclusive of procedures): Not Applicable
<Kimberly Velasquez PA-C - Last Filed: 03/04/25 18:05>
Update Note
Update Note:
17:48- Patient signed out to me by previous provider. Pt is a 74 yo male with recent admission for diverticulitis, completed his antibiotics 5 days ago, who presented to the emergency department for evaluation of worsening abdominal pain associated
with an episode of rigors. On arrival, pt mildly hypertensive, afebrile. On exam, pt reportedly in NAD with abdominal ttp without rebound or guarding. Labs notable for a leukocytosis to 16.7 with a left shift. CTAP demonstrates evidence of
persistent diverticulitis with multiple abscesses. Pt previously given Zosyn and will be admitted. Pt aware of the plan and agrees.
ED Attending Note
<Frankie Wells PA-C - Last Filed: 03/04/25 16:36>
-
Portions of this chart may have been created with voice recognition software.� Occasional wrong word or��sound alike� substitutions may have occurred due to the inherent limitations of voice recognition software.
<Alex Tong MD - Last Filed: 03/04/25 18:01>
ED Attending Note
Patient seen and examined by attending physician: Yes
ED Attending Note:
I have seen and evaluated the patient with a [id number] encounter. I have spoken to the advance practicer provider and involved in the medical history, the physical exam, medical decision making.
Evaluation and management service: agree unless noted differently below.
Results interpretation: agree unless noted differently below.
Focused HPI: 74-year-old male with history as noted presents for evaluation of abdominal pain. Patient was recently admitted for acute diverticulitis and was treated with antibiotics. He was discharged on Augmentin and finishes antibiotic course 4
days ago. Despite this he has continued to have left lower quadrant pain. Yesterday was having some chills and so was referred to the ER for reassessment.
Physical exam: Awake and alert not in distress. Vital signs normal. Abdomen soft, markedly tender in the left lower quadrant.
Medical Decision Makin-year-old male with recent admission for diverticulitis returns with continued abdominal pain despite antibiotics. Labs were sent off including a CBC which showed a leukocytosis to 16.7. His CT showed continued
diverticulitis with adjacent abscess. Treat with IV antibiotics and admit for continued management.
Discharge Plan
Departure
Patient Disposition: Admit
Date of Disposition: 03/04/25
Time of Disposition: 18:02
Presentation/result/management discussed w/ accepting MD/DO: Hospitalist
Discharge Problem:
Diverticulitis of intestine with abscess
Prescriptions:
No Action
allopurinol 300 MG tablet
300 mg PO QPM
amlodipine 5 MG tablet
5 mg PO QPM
atorvastatin 80 MG tablet
80 mg PO HS
Xarelto 20 MG tablet
20 mg PO HS
tamsulosin 0.4 mg capsule
0.4 mg PO QPM
escitalopram oxalate 10 mg tablet
10 mg PO QPM
pantoprazole 40 mg tablet,delayed release (DR/EC)
40 mg PO QPM
Referrals:
Ousmane Thacker MD [Family Provider, Family Practice]
Interventions
Interventions:
*Risk Screen - Suicide Last Done: 03/04/25 11:23
*General Assessment Last Done: 03/04/25 12:39
*Neglect/Abuse Screening Last Done: 03/04/25 12:39
*ED- Fall Risk Assessment Last Done: 03/04/25 12:39
*ED COVID-19 Vaccine History Last Done: 03/04/25 12:39
AV-Xyuqcg-Iamkaaggeh Assessment Last Done: 03/04/25 12:39
Discharge Date and Time
Print Language: PUERTO RICAN
[2025-03-04 13:09] LABS: Hematocrit 38.9 % (39.0-52.0); Hemoglobin 13.4 g/dL (13.0-18.0); Mean Corp Hgb Conc. 34.4 g/dL (33.0-37.0); Mean Corpuscular Volume 91.1 fL (80.0-94.0); Nucleated Red Blood Cells % 0 % (-); Platelet Count 356 10^3/uL (130-400); Red Cell Dist. Width 15.5 % (11.5-14.5)
[2025-03-04 13:21] LABS: Urine Character Clear (Clear)
[2025-03-04 13:22] LABS: ALT (SGPT) 19 U/L (0-50); AST (SGOT) 21 U/L (17-59); Albumin 3.5 g/dl (3.5-5.0); Alkaline Phosphatase 75 U/L (38-126); Blood Urea Nitrogen 12 mg/dl (9-20); Calcium 9.1 mg/dl (8.4-10.2); Carbon Dioxide 27 mmol/L (22-30); Chloride 103 mmol/L (98-107); Estimated Creatinine Clearance 101 ml/min; Glucose 101 mg/dl (70-99); Potassium 4.0 mmol/L (3.5-5.1); Sodium 135 mmol/L (135-145); Total Protein 6.3 g/dl (6.3-8.2); eGFR > 60.00
[2025-03-04] MEDS: ZOSYN 50 IV (16:47)
[2025-03-04] MEDS: NSS 1000 IV (16:47)
--- NOTE | 2025-03-04 19:01 | HPS.HSE ---
Family Physician
-
Family Physician: Ousmane Thacker
Chief Complaint
-
Recurrent left lower quadrant pain
History of Present Illness
74-year-old male with history of hypertension, A-fib, he was discharged from the hospital a week ago after he was admitted for acute diverticulitis and microperforation, completed total 10 days of antibiotic between IV and oral, the last antibiotic
dose was was 5 days ago, presented again to the hospital complaining of recurrent left lower quadrant pain with the associated with subjective fever and chills, pain mostly in the left side of abdomen in nature worse when he goes around, hide
associated diarrhea or constipation mild swelling and some nonbloody stool, denies chest pain cough or congestion. He has been tolerating regular diet.
CT abdomen and pelvis showed recurrent diverticulitis with an abscess around 2.4 x 1.8, given Zosyn and fluid and overall feels better and at the bedside.
Medical History
Past Medical History
Past Medical History: Reports Other
Additional Past Medical History:
Past medical history:
Hypertension
History of NSTEMI and stenting
History of stroke
COPD
Dyslipidemia
Martinez's palsy
A-fib
Gout
Obstructive sleep apnea
Nephrolithiasis
Surgical history:
Cardiac catheterization and stenting
Rotator cuff repair
Cystoscopy and stenting for lithotripsy
Social history: Lives at home with the and the family, no smoking no alcohol or drug use
Family history: Reviewed and noncontributory
Past Surgical History: Reports Other
Social History
Unable to obtain full social history at this time due to: Other
Family History
Family History: Other
Allergies / Home Medications
Allergies reflects when Allergies were last updated in 9+.
Home Medications with original date entered in 9+
Allergy/Medication List:
Allergies
Allergy/AdvReac Type Severity Reaction Status Date / Time
No Known Allergies Allergy Verified 03/04/25 11:22
Home Medications
allopurinol 300 mg tablet 300 mg PO QPM Gout 10/29/13
amlodipine 5 mg tablet 5 mg PO QPM Blood pressure 10/15/18
atorvastatin 80 mg tablet 80 mg PO HS High cholesterol 02/12/19
rivaroxaban 20 mg tablet (Xarelto) 20 mg PO HS Blood clot prevention/tx 06/24/20
escitalopram oxalate 10 mg tablet 10 mg PO QPM Mental Health/Anxiety 02/17/25
tamsulosin 0.4 mg capsule 0.4 mg PO QPM Urinary Issue 02/17/25
pantoprazole 40 mg tablet,delayed release 40 mg PO QPM 03/04/25
Review of Systems
-
A 12 point ROS was completed and negative except as noted: Yes
Physical Exam
Vital Signs
Vital Signs
Temp Pulse Resp BP Pulse Ox
98.0 F 78 18 146/83 99
03/04/25 11:23 03/04/25 11:23 03/04/25 11:23 03/04/25 16:26 03/04/25 18:30
Physical exam:
General: Awake, alert and oriented x3, not in distress and holds appropriate conversation.
HEENT: No active discharge, ecchymosis or bruising, moist lips, tongue and mucous membrane.
Eyes: No discharge or red conjunctiva, no nystagmus, pupils are reactive and equal
Neck:Supple, no JVD no bruit no goiter.
Respiratory: Normal AP contour and diameter, normal chest wall movement, normal respiratory effort, no respiratory distress,
Lungs: Good air entry bilaterally, no wheezing or rhonchi, no rales or crackles
Heart: S1, S2 regular, normal rate, no added sound.
Gastrointestinal: Positive bowel sounds, soft, left lower quadrant tenderness with no guarding or rigidity or organomegaly
Musculoskeletal: , no chest wall abnormality or tenderness. All joints and extremities have good range of motion, no muscle tenderness or any joint swelling or tenderness.
Extremities: No pitting edema, good peripheral pulses, good range of motion
Skin: Warm and dry, no ulceration, normal color.
Neurological: Awake, alert and oriented x3, , speech clear and comprehensive, good muscle tone, no facial droop, normal mentation and moves extremities freely
Psychiatric: Normal mood, normal thought and judgment, normal affect,
Physical Exam
General: Other
Laboratory Results
-
03/04/25 12:54
03/04/25 12:54
Laboratory Results
Total Bilirubin 1.7 mg/dl (0.2-1.3) H 03/04/25:
AST 21 U/L (17-59) 03/04/25:54
ALT 19 U/L (0-50) 03/04/25 12:54
Alkaline Phosphatase 75 U/L (38-126) 03/04/25 12:54
CT abdominal pelvis:
There is acute diverticulitis along the distal descending colon with multiple adjacent gas and fluid containing collections consistent with abscesses. The largest measures 2.4 x 1.8 cm along the superior aspect of the descending colon. Additionally
there is a small abscess underlying the adjacent small bowel which demonstrates mild wall thickening and hyperenhancement which likely represents reactive enteritis.
Cholelithiasis.
Numerous small nonobstructing renal calculi, similar to prior.
Data Reviewed
-
CT Scan: Image Personally Visualized and interpreted, Discussed with Patient and Discussed with Family
Lab Data: Labs Reviewed by me, Discussed with Patient and Discussed with Family
Old Records: Reviewed
Impression/Plan
-
IMPRESSION:
74-year-old male recently discharged from the hospital for diverticulitis with microperforation completed antibiotic between inpatient and outpatient presented again to the hospital complaining of pain subjective fever and chill kind concerning for
diverticulitis with abscess formation.
Diverticulitis with abscess:
- CAT scan reviewed the results as above
- Cover with Zosyn lower
- Surgery consulted and was seen by surgery
-Clear liquid diet and advance as tolerated
-IV fluid
- Pain and nausea medication
- For further recommendation to surgery, the abscess is too small for drainage by IR: See surgery's recommendation.
Hypertension:
Continue amlodipine and monitor vital signs.
A-fib:
Continue Xarelto
Not on rate limiting medication
All discussed with the patient and in detail expressed understanding all the question answered
CODE STATUS full code
DVT prophylaxis
[2025-03-04] MEDS: FLOMAX 0.4 MG PO (21:05)
[2025-03-04] MEDS: LIPITOR 80 MG PO (21:05)
[2025-03-04] MEDS: XARELTO 20 MG PO (21:05)
[2025-03-04] MEDS: ZOSYN 100 IV (23:14)
[2025-03-05] MEDS: ZOSYN 100 IV ×2 (06:26→11:31)
[2025-03-05 07:57] VITALS: BP 146/70
[2025-03-05 09:41] LABS: Hematocrit 36.7 % (39.0-52.0); Hemoglobin 12.4 g/dL (13.0-18.0); Mean Corp Hgb Conc. 33.8 g/dL (33.0-37.0); Mean Corpuscular Volume 91.3 fL (80.0-94.0); Platelet Count 334 10^3/uL (130-400); Red Cell Dist. Width 15.3 % (11.5-14.5)
[2025-03-05 10:00] LABS: Blood Urea Nitrogen 10 mg/dl (9-20); Calcium 8.9 mg/dl (8.4-10.2); Carbon Dioxide 26 mmol/L (22-30); Chloride 103 mmol/L (98-107); Estimated Creatinine Clearance 87 ml/min; Glucose 77 mg/dl (70-99); Potassium 3.9 mmol/L (3.5-5.1); Sodium 136 mmol/L (135-145); eGFR > 60.00
--- NOTE | 2025-03-05 10:57 | W.PN.HOSP.TC ---
Today's Communication/Plan
-
see outlined plan below
Assessment / Plan
Assessment / Plan
Assessment:
Acute diverticulitis
- initially admitted 02/17 to 02/[address] showing moderate acute sigmoid diverticulitis with probable microperforation. completed course of Augmentin
- returns with recurrent pain, fever/chills
- CT now showing acute diverticulitis along the distal descending colon with multiple adjacent gas and fluid containing collections consistent with abscesses. The largest measures 2.4 x 1.8 cm along the superior aspect of the descending colon.
Additionally there is a small abscess underlying the adjacent small bowel which demonstrates mild wall thickening and hyperenhancement which likely represents reactive enteritis.
- GS consulted
- ID consulted; currently on Zosyn. May be a candidate for home IV abx.
- diet: clears
- pain control, anti-emetics
- eventual OP CRS f/u
Essential HTN
- continue CCB
Hx of A. Fib
- hold Xarelto; d/w GS
HLD - statin
DVT ppx: Lovenox
Code: Full
Anticipated Discharge: > 48 hours
Subjective/Interval History
-
Date of Service: March 05, 2025
pain improving
Objective Data
-
Labs:
Laboratory Results
03/05/25
08:01
WBC 12.5 H
Hgb 12.4 L
Hct 36.7 L
Plt Count 334
Sodium 136
Potassium 3.9
Chloride 103
Carbon Dioxide 26
BUN 10
Creatinine 0.7
Glucose 77
Calcium 8.9
Vital Signs:
Vital Signs
Temp Pulse Resp BP Pulse Ox
97.8 F 60 22 146/70 95
03/05/25 07:57 03/05/25 07:57 03/05/25 07:57 03/05/25 07:57 03/05/25 08:20
Physical Exam
-
General: No Apparent Distress
HEENT: Normocephalic and Atraumatic
Respiratory: Negative Wheezes
Cardiac: Regular Rhythm and S1/S2
GI: Soft and Nontender
Genito-urinary: No Costovertebral Tender
Neuro: AO x 3
Psych: Calm
Data Reviewed
-
Total Time Spent with Patient (in minutes): 42
Labs: Labs Reviewed by me
--- NOTE | 2025-03-05 14:06 | CON.ID ---
Consultation
-
Date/Time Consultation Requested: 03/05/25 8:05
Date/Time Consultation Performed: 03/05/25 14:06
Requesting Provider: Edith YANG
Performing Provider: Dr Mercado
Reason for Consultation: intraabdominal fluid collection
Chief Complaint / Past History
Chief Complaint
Recurrent left lower quadrant pain
History of Present Illness
Mr Vences is a 74-year-old male with history of diverticulitis and microperforation, he completed total 10 days of antibiotic between IV zosyn and oral augmentin, the last antibiotic dose was was 5 days ago, presented again to the hospital
complaining of recurrent left lower quadrant pain with the associated with subjective fever and chills, pain mostly in the left side of abdomen. No associated diarrhea or constipation, mild swelling and some nonbloody stool. He denies chest
pain cough or congestion.
Since arrival here he has been afebrile, bp stable, wbc initially 16.7 now 12.5, hgb 12.4, plt 334, cr 0.6, na 136, lfts wnl, CT abdomen and pelvis showed recurrent diverticulitis with an abscess around 2.4 x 1.8 x1.8 cm as well as another small
abscess 2.0 x 1.2 and 1.7 x 1.0, given Zosyn, QTc 430, ID is consulted for assistance with management.
Past History
Additional Past Medical History:
Hypertension
History of NSTEMI and stenting
History of stroke
COPD
Dyslipidemia
Martinez's palsy
A-fib
Gout
Obstructive sleep apnea
Nephrolithiasis
Additional Past Surgical History:
Cardiac catheterization and stenting
Rotator cuff repair
Cystoscopy and stenting for lithotripsy
Allergy History:
No Known Allergies Allergy (Verified 03/04/25 11:22)
Medications Reviewed: Yes
Social History
Tobacco: Non-Smoker
Alcohol: None
Drug: None
Family History
Family History: Not Pertinent
Review of Systems
Review of Systems
A 12 point ROS was completed and negative except as noted
Vital Signs
Temp Pulse Resp BP Pulse Ox
97.8 F 60 22 146/70 95
03/05/25 07:57 03/05/25 07:57 03/05/25 07:57 03/05/25 07:57 03/05/25 08:20
Physical Exam
Physical Exam
Constitutional: No Acute Distress
Cardiovascular: Regular Rate and S1/S2; Negative Murmur or Rub
Pulmonary: Clear and Symmetric; Negative Wheezes, Rales or Rhonchi
Gastrointestinal: Soft, Non Tender, Non Distended and Normal Bowel Sounds
Skin: Warm and Dry; Negative Rash or Jaundice
Lab / Diagnostic Study Results
03/05/25 08:01
03/05/25 08:01
Abs Immat Gran (auto) 0.3 10^3/uL (0-0.05) H 03/04/25 12:54
Absolute Neuts (auto) 14.2 10^3/uL (1.4-6.5) H 03/04/25 12:54
Absolute Lymphs (auto) 1.0 10^3/uL (1.2-3.4) L 03/04/25 12:54
Absolute Monos (auto) 1.1 10^3/uL (0.1-0.6) H 03/04/25 12:54
Absolute Basos (auto) 0.1 10^3/uL (0-0.2) 03/04/25 12:54
Immature Gran % 1.5 % (0-0.5) H 03/04/25 12:54
Neutrophils % 85.3 % (42.2-75.2) H 03/04/25 12:54
Lymphocytes % 6.0 % (20.5-51.1) L 03/04/25 12:54
Monocytes % 6.3 % (1.7-9.3) 03/04/25 12:54
Eosinophils % 0.5 % (0-6) 03/04/25 12:54
Basophils % 0.4 % (0-2) 03/04/25 12:54
Ur Squamous Epith Cells 3-5 /LPF (Few) 03/04/25 12:54
Microbiology Results
Micro:
03/04/25 12:54 Urine Culture - Final
Urine
Assessment / Plan
Small Intraabdominal Abscesses
Recent diverticulitis with microperforation
- start levofloxacin/metronidzole; stop zosyn
- given size unlikely to be able to place a drain
- check CRP and ESR for baseline; check a1c
- qtc acceptable
- will follow up surgical consult
--- NOTE | 2025-03-05 14:52 | CON.CRS ---
Addendum entered and electronically signed by Brian Felix MD 03/05/25 15:55:
Patient seen and examined with surgical ACID CONCENTRATOR. Agree with documented progress note with additions noted here.
HPI: 74-year-old male recently hospitalized for sigmoid diverticulitis with microperforation/probable intramural abscess, discharged 02/21/2025. Finish course of outpatient Augmentin this past Friday and was feeling well. Yesterday he developed the
acute onset of recurrent left lower quadrant pain shortly after straining to have a bowel movement prompting emergency department evaluation. At that point he was noted to have leukocytosis and CT imaging notable for persistent area of mural
abscess adjacent to sigmoid and adjacent smaller abscesses.
At this time patient states that he feels much improved. No residual pain. Appetite well. No bowel movement since coming in the hospital.
AFVSS
NAD AAO x 3
ABD: Soft, nondistended, mild tenderness to palpation localized in the left lower quadrant. No rebound, no rigidity, no guarding even with deep palpation
CT abdomen/pelvis reviewed from 02/17/2025 as well as 03/04/2025 as outlined below.
Assessment/plan: 74-year-old male with recurrent/persistent sigmoid diverticulitis.
Degree of inflammatory/phlegmonous process in the immediate vicinity of the colon has receded since last CT imaging but now there are additional adjacent abscesses measuring up to 2.5 cm. 1 in particular situated between the small bowel and colon
but there does not appear to be radiographic signs suggestive of ileus or obstruction.
No signs of peritonitis. Clinically stable and improving overnight.
Continue with nonoperative management.
ID recommendations appreciated
Maintain clear liquids today and if remains asymptomatic advance to low residue tomorrow
Will follow
Original Note:
Consultation
-
Date/Time Consultation Performed: 03/05/25 1415
Medical History
-
Chief Complaint: LLQ pain
History of Present Illness:
Mr Vences is a 74 yo male with a h/o dementia, AFib on Xarelto (LD 03/04), DAVE, CAD s/p stent, UHR and recent admission for diverticulitis with microperforation from 02/17/25 to 02/21/25. He improved with antibiotics and nonoperative measures and was
discharged on Augmentin which he completed on 02/28/25. Last colonoscopy was in [address] Hardwick. He presents this admission as he had noted recurrent LLQ pain. He is overall a poor historian, but notes he had the pain as he was pushing to have a BM
yesterday. There is mild LLQ tenderness on exam. He denies nausea, vomiting, fevers or chills. He notes he was tolerating food well at home.
Past Medical History
Past Medical History: Arrhythmias (permanent afib), CAD, CVA, Diverticulitis (January 2025), HTN, Hypercholesterolemia, [place] and Other (elena's palsy, gout, dave, neprholithiasis)
Past Surgical History: Cardiac (cardiac stenting, ppm ), Hernia Repair (umbilical hernia repair with mesh 2018 ([facility])), Orthopedic (rotator cuff), Urological (uretersocopy for stone) and Other (colonoscopy 2014, 2020)
Social History
Tobacco: Non-Smoker
Alcohol: Occasional
Personal:
Living: With Family
Family History
Family History: Reviewed & Not Pertinent
Allergies / Home Medications
Allergy/AdvReac Type Severity Reaction Status Date / Time
No Known Allergies Allergy Verified 03/04/25 11:22
�Medication �Instructions �Recorded �Confirmed �Type
allopurinol 300 mg tablet 300 mg PO QPM Gout 10/29/13 03/04/25 History
amlodipine 5 mg tablet 5 mg PO QPM Blood pressure 10/15/18 03/04/25 History
atorvastatin 80 mg tablet 80 mg PO HS High cholesterol 02/12/19 03/04/25 History
rivaroxaban 20 mg tablet (Xarelto) 20 mg PO HS Blood clot 06/24/20 03/04/25 History
prevention/tx
escitalopram oxalate 10 mg tablet 10 mg PO QPM Mental Health/Anxiety 02/17/25 03/04/25 History
tamsulosin 0.4 mg capsule 0.4 mg PO QPM Urinary Issue 02/17/25 03/04/25 History
pantoprazole 40 mg tablet,delayed 40 mg PO QPM Gastrointestinal Issue 03/04/25 03/04/25 History
release
Review of Systems
-
History Source: Patient and Family
All other systems: Negative unless noted
A 10 point review of systems was completed, and was negative except as per HPI.
Physical Exam
Vital Signs
Temp 97.8 F 03/05/25 07:57
Pulse 60 03/05/25 07:57
Resp Rate 22 03/05/25 07:57
Blood pressure 146/70 03/05/25 07:57
SaO2 95 03/05/25 08:20
03/04/25 03/05/25 03/06/25
06:59 06:59 06:59
Actual Weight 75.325 kg
Body Mass Index (BMI) 25.3
Lab Results / Allergies
03/05/25 08:01
03/05/25 08:01
WBC 12.5 10^3/uL (4.8-10.8) H 03/05/25 08:01
Hgb 12.4 g/dL (13.0-18.0) L 03/05/25 08:01
Hct 36.7 % (39.0-52.0) L 03/05/25 08:01
Plt Count 334 10^3/uL (130-400) 03/05/25 08:01
Abs Immat Gran (auto) 0.3 10^3/uL (0-0.05) H 03/04/25 12:54
Neutrophils % 85.3 % (42.2-75.2) H 03/04/25 12:54
Allergy/AdvReac Type Severity Reaction Status Date / Time
No Known Allergies Allergy Verified 03/04/25 11:22
Physical Exam
General: Well Developed and Well Nourished
HEENT: Moist Mucous Membranes
Respiratory: Non Labored Respirations
GI: Soft and Tender (mild LLQ pain)
Skin: Warm and Dry
Neuro: Awake, Alert and AO x 3
Psych: Calm
Data Reviewed
-
CT Scan: Image Personally Visualized and interpreted, Report Reviewed by me, Discussed with Physician and Discussed with Patient
Labs: Labs Reviewed by me, Discussed with Physician and Discussed with Patient
Old Records: Reviewed
Assessment / Plan
-
74 yo male with h/o dementia, AFib on Xarelto (LD 03/04), DAVE, CAD s/p stent, UHR and recent admission for diverticulitis with microperforation from 02/17/25 to 02/21/25. He improved with antibiotics and nonoperative measures and was discharged on
Augmentin which he completed on 02/28/25. He returns with recurrent LLQ pain. Afebrile. VSS. Leukocytosis to 16.7 on admission now down to 12.5 on abx. Tolerating CLD thus far. CT abd/pelvis reviewed which does show improvement in inflammation of the
sigmoid diverticulitis compared to prior scan but with interim development of multiple pericolonic small abscesses/collections, the largest of which is 2.4 x 1.8 cm.
Plan:
Continue clears
Analgesics as needed
ID consulted to assist with antibiotic management
Given size and location of abscesses, no need for IR drainage at this time
Clinically improving with IV ABX, no plans for emergent surgery at this time, will follow for continued improvement
Hold Xarelto in case procedure warranted, ok for SQ Lovenox
[2025-03-05] MEDS: LEVAQUIN 750 MG PO (15:01)
--- NOTE | 2025-03-05 15:58 | CM ---
Patient seen at bedside
IA completed
clear liquid diet
per ID note - start levofloxacin/metronidzole; stop zosyn
given size unlikely to be able to place a drain
surgery consulted - per note no plans for emergent surgery at this time
Lives with in 1 story home, 4 RAFA
PLOF: independent
Denies DME
Has had [facility] in past, denies SNF
pcp: Ousmane Thacker
pharmacy: [address], [place]
PLAN: home, no needs anticipated, CM to continue to follow
[2025-03-05 16:15] VITALS: BP 134/83
[2025-03-05] MEDS: NORVASC 5 MG PO (17:12)
[2025-03-05] MEDS: PROTONIX 40 MG PO (17:12)
[2025-03-05] MEDS: FLOMAX 0.4 MG PO (17:12)
[2025-03-05] MEDS: LEXAPRO 10 MG PO (17:12)
[2025-03-05] MEDS: LOVENOX 40 MG SC (17:13)
[2025-03-05] MEDS: ZYLOPRIM 300 MG PO (17:13)
[2025-03-05] MEDS: FLAGYL 500 MG PO (21:18)
[2025-03-05] MEDS: LIPITOR 80 MG PO (21:18)
[2025-03-05 23:36] VITALS: BP 138/77
[2025-03-06 06:35] LABS: Hematocrit 35.5 % (39.0-52.0); Hemoglobin 12.3 g/dL (13.0-18.0); Mean Corp Hgb Conc. 34.6 g/dL (33.0-37.0); Mean Corpuscular Volume 91.3 fL (80.0-94.0); Platelet Count 345 10^3/uL (130-400); Red Cell Dist. Width 15.1 % (11.5-14.5)
[2025-03-06 06:58] LABS: Blood Urea Nitrogen 7 mg/dl (9-20); Calcium 9.3 mg/dl (8.4-10.2); Carbon Dioxide 27 mmol/L (22-30); Chloride 103 mmol/L (98-107); Estimated Creatinine Clearance 87 ml/min; Glucose 96 mg/dl (70-99); Potassium 4.4 mmol/L (3.5-5.1); Sodium 136 mmol/L (135-145); eGFR > 60.00
[2025-03-06 07:01] LABS: C-Reactive Protein 36.10 mg/L (0.0-10.00)
[2025-03-06 08:12] VITALS: BP 154/84
[2025-03-06] MEDS: FLAGYL 500 MG PO (08:30)
[2025-03-06] MEDS: LEVAQUIN 750 MG PO (08:31)
[2025-03-06 08:52] LABS: Glycohemoglobin (HgbA1c) 5.9 % (4.0-5.6)
--- NOTE | 2025-03-06 10:21 | W.PN.ID1 ---
Date of Service
Date of Service: March 06, 2025
Today's Communication
- continue levofloxacin/metronidzole x 14 days total
Assessment / Plan
Small Intraabdominal Abscesses
Recent diverticulitis with microperforation
- continue levofloxacin/metronidzole x 14 days total
- given size unlikely to be able to place a drain
- qtc acceptable
- follow up with surgery
Chief Complaint
-: Other (intraabdominal abscesses - small)
Subjective / Review of Systems
afebrile
bp stable
tolerating current therapies
Vital Signs / Physical Exam
Vital Signs
Vital Signs
Temp Pulse Resp BP Pulse Ox
97.4 F 59 22 154/84 99
03/06/25 08:12 03/06/25 08:12 03/06/25 08:12 03/06/25 08:12 03/06/25 08:12
Physical Exam
Constitutional: No Acute Distress
Cardiovascular: Regular Rate and S1/S2; Negative Murmur or Rub
Pulmonary: Clear and Symmetric; Negative Wheezes or Rales
Gastrointestinal: Soft, Non Tender (resolved overnight), Non Distended and Normal Bowel Sounds
Skin: Warm and Dry; Negative Rash or Jaundice
Objective Data
Lab Data
Lab Results
03/06/25 05:44
03/06/25 05:44
ESR 18 mm/hour (0-20) 03/06/25 05:44
Estimated Creat Clear 87 ml/min 03/06/25 05:44
Total Bilirubin 1.7 mg/dl (0.2-1.3) H 03/04/25 12:54
AST 21 U/L (17-59) 03/04/25 12:54
ALT 19 U/L (0-50) 03/04/25 12:54
Alkaline Phosphatase 75 U/L (38-126) 03/04/25 12:54
C-Reactive Protein 36.10 mg/L (0.0-10.00) H 03/06/25 05:44
Most recent labs reviewed.
Micro Results:
03/05/25 17:46 Blood Culture - Pending
Blood/Venous
03/05/25 14:33 Blood Culture - Pending
Blood/Venous
03/04/25 12:54 Urine Culture - Final
Urine
Care Review
Plan reviewed with: Physician (Dr Sharma - duration)
--- NOTE | 2025-03-06 10:55 | W.PN.HOSP.TC ---
Today's Communication/Plan
-
LRD and if tolerates, dc home 14 day oral abx per ID and CRS f/u OP
Assessment / Plan
Assessment / Plan
Assessment:
Acute diverticulitis
- initially admitted 02/17 to 02/[address] showing moderate acute sigmoid diverticulitis with probable microperforation. completed course of Augmentin
- returns with recurrent pain, fever/chills
- CT now showing acute diverticulitis along the distal descending colon with multiple adjacent gas and fluid containing collections consistent with abscesses. The largest measures 2.4 x 1.8 cm along the superior aspect of the descending colon.
Additionally there is a small abscess underlying the adjacent small bowel which demonstrates mild wall thickening and hyperenhancement which likely represents reactive enteritis.
- GS consulted; abscesses too small to drain
- ID consulted; currently on Zosyn. will dc on 14 days total of Levaquin/Flagyl
- diet: LRD
- pain control, anti-emetics
- OP CRS f/u on 03/15 Dr. Qureshi
Essential HTN
- continue CCB
Hx of A. Fib
- resume Xarelto this evening
HLD - statin
DVT ppx: Lovenox
Code: Full
Anticipated Discharge: Today
Subjective/Interval History
-
Date of Service: March 06, 2025
tolerating clears
no n/v
+ BMs, no blood
Objective Data
-
Labs:
Laboratory Results
03/06/25
05:44
WBC 9.8
Hgb 12.3 L
Hct 35.5 L
Plt Count 345
Sodium 136
Potassium 4.4
Chloride 103
Carbon Dioxide 27
BUN 7 L
Creatinine 0.7
Glucose 96
Calcium 9.3
Vital Signs:
Vital Signs
Temp Pulse Resp BP Pulse Ox
97.4 F 59 22 154/84 99
03/06/25 08:12 03/06/25 08:12 03/06/25 08:12 03/06/25 08:12 03/06/25 08:12
I&O
03/05/25 03/06/25 03/07/25
06:59 06:59 06:59
Intake Total 2340 / 2340
Output Total 850 / 850
Balance 1490 / 1490
Physical Exam
-
General: No Apparent Distress
HEENT: Normocephalic and Atraumatic
Respiratory: Negative Wheezes
Cardiac: Regular Rhythm and S1/S2
GI: Soft and Nontender
Neuro: AO x 3
Psych: Calm
Data Reviewed
-
Total Time Spent with Patient (in minutes): 42
Labs: Labs Reviewed by me
--- NOTE | 2025-03-06 10:59 | W.DS.TRANS ---
DC Summary - Clinical Dietitian
-
Discharge Instructions:
Sleep Apnea Risk Intermediate
Discharge Diagnosis/Procedures acute diverticulitis with abscess
Diet Low Residue
Activity As tolerated
Instructions:
Stand-Alone Forms:
Changes to Home Medications: No
Discharge Medications:
DC Medications w/original date entered in [facility] [employer]
allopurinol 300 mg tablet 300 mg PO QPM Gout 10/29/13
amlodipine 5 mg tablet 5 mg PO QPM Blood pressure 10/15/18
atorvastatin 80 mg tablet 80 mg PO HS High cholesterol 02/12/19
rivaroxaban 20 mg tablet (Xarelto) 20 mg PO HS Blood clot prevention/tx 06/24/20
escitalopram oxalate 10 mg tablet 10 mg PO QPM Mental Health/Anxiety 02/17/25
tamsulosin 0.4 mg capsule 0.4 mg PO QPM Urinary Issue 02/17/25
pantoprazole 40 mg tablet,delayed release 40 mg PO QPM Gastrointestinal Issue 03/04/25
levofloxacin 750 mg tablet 750 mg PO DAILY #12 tabs 03/06/25
metronidazole 500 mg tablet 500 mg PO BID #24 tabs 03/06/25
Home Medication Changes
Pending Results: No
Total time spent discharging patient (in min): 42
--- NOTE | 2025-03-06 12:59 | CM ---
Patient seen at bedside
IMM explained & signed. In chart
discharge today
PLAN: Home, no needs
to transport
--- NOTE | 2025-03-07 11:24 | CM ---
Late entry: TC tiana Allison from [facility] - patient is current with [facility]
referral sent via [employer]. Faxed dc instructions to [phone]
== END 2025-03-06 14:26 | disposition home health service (06) | DRG 391 ==
LOC: 3 WEST ACU 18:51
PROVIDERS: Physician Assistant; Registered Nurse; ADMITTING PHYSICIAN Internal Medicine; ATTENDING PHYSICIAN Internal Medicine; CONSULT PHYSICIAN Student in an Organized Health Care Education/Training Program; CONSULT PHYSICIAN Surgery; EMERGENCY PHYSICIAN Emergency Medicine; FAMILY PHYSICIAN Family Medicine
DX: K57.20 Diverticulitis of large intestine with perforation and abscess without bleeding (principal); K65.1 Peritoneal abscess; I48.21 Permanent atrial fibrillation; I10 Essential (primary) hypertension; I25.10 Atherosclerotic heart disease of native coronary artery without angina pectoris; G51.0 Bell's palsy; G47.33 Obstructive sleep apnea (adult) (pediatric); F03.90 Unspecified dementia, unspecified severity, without behavioral disturbance, psychotic disturbance, mood disturbance, and anxiety; J44.9 Chronic obstructive pulmonary disease, unspecified; E78.00 Pure hypercholesterolemia, unspecified; K21.9 Gastro-esophageal reflux disease without esophagitis; M10.9 Gout, unspecified; N20.0 Calculus of kidney; I25.2 Old myocardial infarction; Z79.01 Long term (current) use of anticoagulants; Z79.899 Other long term (current) drug therapy; Z86.73 Personal history of transient ischemic attack (TIA), and cerebral infarction without residual deficits; Z95.5 Presence of coronary angioplasty implant and graft; Z95.0 Presence of cardiac pacemaker
CPT/HCPCS: 74177; 80048; 80053; 81003; 81015; 83036; 85025; 85027; 85652; 86140; 87040; 87086; 96365; 99285; Q9967

== ENCOUNTER → 2025-04-01 08:24 | Outpatient (REF) | payer OTHER, SELFPAY | LOC: RAD 08:24 | PROVIDERS: ATTENDING PHYSICIAN Surgery; FAMILY PHYSICIAN Family Medicine | DX: K57.20 Diverticulitis of large intestine with perforation and abscess without bleeding (principal) | CPT/HCPCS: 74177; Q9967 ==